=== PATIENT | female | born 1945 | race Caucasian/White ===

== ENCOUNTER → 2018-07-05 | Outpatient (CLI) | payer MEDICARE, BC ==
--- NOTE | 2018-07-05 12:29 | BD ---
EXAMINATION TYPE: Axial Bone Density DATE OF EXAM: 07/05/2018 COMPARISON: 02/12/2010 CLINICAL HISTORY: 72-year-old female screening for osteoporosis Height: 60 IN Weight: 137 LBS FRAX RISK QUESTIONS: Secondary Osteoporosis: 3. Menopause before 45: YES AGE 40 Current Tobacco Use: YES RISK FACTORS HISTORY OF: Active: YES Diet low in dairy products/other sources of calcium: YES Postmenopausal woman: AGE 40 MEDICATIONS: Additional Medications: VIT D, INDERAL,DIURETIC, EXAM MEASUREMENTS: Bone mineral densitometry was performed using the Chef System. Bone mineral density as measured about the Lumbar spine is: ----- L1-L4(G/cm2): 1.155 T Score Values are as follows: ----- L2: -0.9 ----- L3: 0.8 ----- L4: 0.2 ----- L1-L4: -0.2 Bone mineral density has: Increased 8.7% since study of: 02/12/2010 Bone mineral density about the R hip (g/cm2): 0.950 Bone mineral density about the L hip (g/cm2): 0.854 T Score values are as follows: -----R Neck: -0.6 -----L Neck: -1.3 -----R Total: -0.8 -----L Total: -1.0 Bone mineral density has: Increased 2.2% since study of: 02/12/2010 IMPRESSION: Osteopenia (T Score between -2.5 and -1). There is slightly increased risk of fracture and the patient may be considered for treatment. Re-Screen 2-5 years. NOTE: T-SCORE=SD OF THE YOUNG ADULT MEAN.
--- NOTE | 2018-07-06 12:31 | MM ---
Reason for exam: screening (asymptomatic). Last mammogram was performed 2 years ago. History: Patient is postmenopausal. Family history of breast cancer in maternal aunt at age 50 and breast cancer in maternal cousin. Saline implants in both breasts, 1980. Physical Findings: A clinical breast exam by your physician is recommended on an annual basis and results should be correlated with mammographic findings. MG 3D Screen Mammo Imp/Cad Bilateral CC, MLO, and ID view(s) were taken. Prior study comparison: July 19, 2016, bilateral MG 3d screen mammo imp/cad. February 24, 2010, bilateral diagnostic digital mammog. There are scattered fibroglandular densities. No significant changes when compared with prior studies. ASSESSMENT: Benign, BI-RAD 2 RECOMMENDATION: Routine screening mammogram of both breasts in 1 year.
== END | disposition home or self-care (01) ==
LOC: RADMAMWWP 08:50
PROVIDERS: ATTEND Family Medicine
DX: Z12.31 Encounter for screening mammogram for malignant neoplasm of breast (principal); Z13.820 Encounter for screening for osteoporosis; M85.80 Other specified disorders of bone density and structure, unspecified site
CPT/HCPCS: 77063; 77067; 77080

== ENCOUNTER → 2018-11-04 | Outpatient (CLI) | payer MEDICARE, BC ==
--- NOTE | 2018-11-04 13:03 | MR ---
EXAMINATION TYPE: MR hip RT wo con DATE OF EXAM: 11/04/2018 COMPARISON: None. HISTORY: Pain in right hip for 3 months per patient. Standard multiplanar, multisequence MRI departmental protocol Multiplanar, multisequence images of the pelvis focusing on the right hip were acquired. FINDINGS: There is serpiginous low T1 signal in the right femoral head with heterogeneous T2 signal i nvolving the head and neck region. There is asymmetric moderate size right hip joint effusion. Femora l head shape is fairly well preserved . No free ossific fracture fragment is identified. Left hip shows no suspicious serpiginous low T1 signal. There is small to moderate left hip joint eff usion smaller versus opposite right hip. Remainder of pelvis shows no suspicious edema. Sacroiliac cheryl ints are maintained. Pubic symphysis is intact. No suspicious focal fluid signal seen at level of greater or lesser trochanters bilaterally. No groin adenopathy or hernia is seen. Muscle bulk in thighs is symmetric and felt within normal limits. Labrum appears grossly intact given limitation of nonarthrogram study. No suspicious bowel dilatation is seen. Bladder is within normal limits. Incidental facet arthropathy in the lower lumbar spine. 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
== END ==
LOC: RADMRIMAIN 10:07
PROVIDERS: ATTEND Family Medicine
DX: M25.551 Pain in right hip (principal); M87.9 Osteonecrosis, unspecified

== ENCOUNTER → 2018-12-15 | Outpatient (CLI) | payer MEDICARE, BC ==
--- NOTE | 2018-12-15 16:59 | XR ---
EXAMINATION TYPE: XR chest 2V DATE OF EXAM: 12/15/2018 COMPARISON: NONE HISTORY: Preop TECHNIQUE: Frontal and lateral views of the chest are obtained. FINDINGS: There is no heart failure nor confluent pneumonic infiltrate. There are bilateral breast i mplants with calcification. There is no pleural effusion. Heart size is normal. Bony thorax is intact . There are clips from cholecystectomy. IMPRESSION: No active cardiopulmonary disease.
== END | disposition home or self-care (01) ==
LOC: RADXRMAIN 15:02
PROVIDERS: ATTEND Family Medicine
DX: I10 Essential (primary) hypertension (principal)
CPT/HCPCS: 71046

== ENCOUNTER → 2018-12-19 | Outpatient (CLI) | payer MEDICARE, BC | LOC: LABPAT 14:09 | PROVIDERS: ATTEND Orthopaedic Surgery | DX: Z01.812 Encounter for preprocedural laboratory examination (principal); M16.11 Unilateral primary osteoarthritis, right hip | CPT/HCPCS: 86850; 86900; 86901; 87070 ==

== ENCOUNTER 2018-12-26 07:07 | Inpatient (IN) | payer MEDICARE, BC ==
--- NOTE | 2018-12-25 09:08 | HP ---
HISTORY AND PHYSICAL CHIEF COMPLAINT: Right hip pain. HISTORY OF PRESENT ILLNESS: The patient is a 72-year-old retired female who presents with progressive right hip pain over the past several months. It has worsened recently. She notes popping in addition to significant groin pain with weightbearing activities. She has tried medications with only partial temporary relief. She notes she is limping quite a bit. PAST MEDICAL HISTORY: Significant for hypertension. PAST SURGICAL HISTORY: Significant for bilateral rotator cuff repair and bilateral foot surgery. CURRENT MEDICATIONS: 1. Dyazide. 2. Inderal. 3. Maxzide. ALLERGIES: She has allergies to PENICILLIN. FAMILY HISTORY: Significant for heart disease and cancer. SOCIAL HISTORY: Significant for 1 pack per day tobacco use and social alcohol use. REVIEW OF SYSTEMS: Sixteen-point review of systems otherwise reviewed and is noncontributory. PHYSICAL EXAMINATION: On examination, the patient is approximately 5 feet 2 inches, 130 pounds of ectomorphic habitus. HEENT exam is nonfocal. Neck is supple. Passive motion right hip, flexion 70 degrees, external rotation with hip flexed 50 degrees, internal rotation 0 degrees with pain. She has no clinical leg length discrepancy. Her distal neurovascular exam appears to be intact in the right lower extremity. She does have an antalgic gait pattern. AP of the pelvis obtained in the office shows a lytic area of the right femoral head. MRI report right hip 11/04/2018 shows avascular necrosis involving the right femoral head. IMPRESSION: Right hip avascular necrosis. RECOMMENDATIONS: I talked to the patient at length regarding her condition and treatment options. At this point, she is quite symptomatic despite conservative measures. After thorough discussion, she opts to proceed with surgery. We will plan to proceed with direct anterior approach right total hip arthroplasty. Risks and benefits were discussed at length in layman's terms. We will institute DVT prophylaxis postoperatively. MMODL / IJN: [id number] /
[~2018-12-26 07:07] MED LIST: ACETAMINOPHEN TAB 500 MG TAB PO ONE; CLINDAMYCIN 900 MG in DEXTROSE 5% IN WATER 50 ML IVPB ONE; DEXAMETHASONE SOD PHOSPHATE 10 MG/ML 1 ML VIAL IV ONE; HYDROmorphone 0.5 MG/0.5 ML SYRINGE IVP PRN; MELOXICAM 7.5 MG TAB PO ONE; MIDAZOLAM (PF) 2 MG/2 ML VIAL IV PRN; ONDANSETRON 4 MG/2 ML VIAL IVP ONE; TRANEXAMIC ACID 1,000 MG in SODIUM CHLORIDE 0.9% 100 ML IVPB ONE
[2018-12-26] MEDS: LACTATED RINGERS 1,000 ML IV SCH (07:37)
[2018-12-26] MEDS ORDERED: fentaNYL (PF) 50 MCG/ML 2 ML AMP ONE (08:00)
[2018-12-26] MEDS ORDERED: MIDAZOLAM 2 MG/2 ML VIAL ONE (08:00)
[2018-12-26] MEDS ORDERED: SODIUM CHLORIDE 0.9% 100 ML BAG ONE (08:00)
[2018-12-26] MEDS ORDERED: diphenhydrAMINE 50 MG/ML 1 ML VIAL ONE (08:00)
[2018-12-26] MEDS ORDERED: HEPARIN SODIUM,PORCINE 10,000 UNIT/ML 1 ML VIAL ONE (08:00)
[2018-12-26] MEDS ORDERED: PROPOFOL 10 MG/ML 20 ML VIAL IV ONE (08:00)
[2018-12-26] MEDS ORDERED: SODIUM CHLORIDE 0.9% IRRIG 1,000 ML BTL IRRIGATION ONE (08:00)
[2018-12-26] MEDS ORDERED: PHENYLEPHRINE-0.9% NACL SYG 1 MG/10 ML SYRINGE ONE (08:00)
[2018-12-26] MEDS ORDERED: TRANEXAMIC ACID 1,000 MG/10 ML VIAL ONE (08:00)
[2018-12-26] MEDS ORDERED: CLINDAMYCIN 1,800 MG in SODIUM CHLORIDE 0.9% IRRIGATIO 3,000 ML IRRIGATION ONE (08:30)
[2018-12-26] MEDS ORDERED: LACTATED RINGERS 1,000 ML IV ONE (09:38)
[2018-12-26] MEDS ORDERED: traMADol 50 MG TAB PO PRN (11:01)
[2018-12-26] MEDS ORDERED: HYDROcodone/APAP 5-325MG 1 EACH TAB PO PRN (11:01)
[2018-12-26] MEDS ORDERED: ACETAMINOPHEN TAB 325 MG TAB PO PRN (11:01)
[2018-12-26] MEDS ORDERED: NALOXONE 0.4 MG/ML 1 ML VIAL IV PRN (11:01)
[2018-12-26] MEDS ORDERED: HYDROmorphone 0.5 MG/0.5 ML SYRINGE IVP PRN (11:01)
[2018-12-26] MEDS ORDERED: ONDANSETRON 4 MG/2 ML VIAL IVP PRN (11:01)
[2018-12-26] MEDS ORDERED: MAGNESIUM HYDROXIDE 2,400 MG/10 ML CUP PO PRN (11:01)
--- NOTE | 2018-12-26 11:06 | FL ---
EXAMINATION TYPE: FL guidance operating room DATE OF EXAM: 12/26/2018 HISTORY: Flouroscopy time 47 seconds of fluoroscopy provided. IMPRESSION: 1. Fluoroscopy time.
--- NOTE | 2018-12-26 11:07 | XR ---
EXAMINATION TYPE: XR Hip Limited RT DATE OF EXAM: 12/26/2018 COMPARISON: NONE HISTORY: Postop TECHNIQUE: One view submitted. FINDINGS: There is postsurgical change in near anatomic alignment. There is soft tissue edema and emphysema. IMPRESSION: 1. Postoperative change. Appears in near-anatomic alignment.
--- NOTE | 2018-12-26 11:21 | P.OP ---
Date of Procedure: 12/26/18 Preoperative Diagnosis: Avascular necrosis right femoral head Postoperative Diagnosis: Same Procedure(s) Performed: Right total hip arthroplastyanterior approach/cable fixation iatrogenic proximal femur fracture Implants: Depuy Corail size 10 collared standard press-fit femoral stem, 32 mm +1 cobalt chrome femoral head, 50 mm [place] acetabular shell with neutral polyethylene liner. 4 stainless still cables were utilized. Anesthesia: spinal Surgeon: Adan Hutchison Pathology: other (Femoral head) Condition: stable Disposition: PACU Indications for Procedure: The patient's a 73-year-old female who presents with progressive right hip pain secondary to avascular necrosis. A discussion of the risks and benefits of operative intervention was made with patient. Shaft procedure surgery. Specific risks of surgery to include infection, neurovascular injury, development of blood clots, possible fracture, possible ligamentous gaps he, possible instability, and possible need for subsequent procedures was discussed. Informed consent was obtained. Operative Findings: As below Description of Procedure: The patient was brought to the operating room, and after induction of spinal anesthesia was placed supine on the Ava table. Positioning was checked with fluoroscopy. The right hip was then prepped and draped in a normal fashion. A 12 cm incision was then made starting 2 fingerbreadths distal and 3 finger breaths posterior to the ASIS in line with the proximal femur. The skin was incised sharply. Subcutaneous tissues were divided sharply. Electrocautery was used for hemostasis. The fascia was split in line with skin incision. The interval between the sartorius and tensor fascia [place] was then bluntly developed. The posterior fascia was opened with electrocautery. The lateral circumflex vessels were identified and cauterized prior to sectioning. A retractor was placed along the superior femoral neck as well as the anterior acetabular rim. A wide capsulotomy was performed. The neck cut was then made at a 45 angle to the shaft approximately 1 1/2 cm above the level of the lesser trochanter. The head was extracted. Attention was then paid towards preparing the acetabular. Anterior and posterior retractors were placed. The remaining capsular labral tissue sharply debrided clearly defining the acetabular margins. I began reaming with a 41 mm reamer taking care to initially medialize then reaming at 45 of abduction and 20 of anteversion. Sequential reaming is performed up to 49 mm. A trial D mm acetabular shell was inserted in the same orientation and was fully seated. There was good rim fit and stability. Positioning was checked with fluoroscopy. The final 50 mm acetabular shell was inserted again at 45 of abduction and 20 of anteversion. This was fully seated. There was good rim fit and stability. A 6.5 mm x 30 mm cancellus screws placed posterior superior. Good purchase was obtained. Again fluoroscopy was used to check the adequacy of placement. A neutral polyethylene liner was gently impacted. Care was taken to avoid any soft tissue interposition. Pulsatile lavage was utilized. Attention was then paid towards preparing the proximal femur. The central region was cleared of soft tissue. A canal finder was used to find the femoral canal. Sequential broaching was performed up to size 10 taking care to lateralize proximally. A calcar mill was used to fashion the medial calcar. The calcar mill did cause a fracture of the posterior medial calcar. This was stabilized with 4 stainless steel cerclage wires after placement of the size 10 final collared stem parallel to the posterior cortex. There was good rotational stability. A 32 mm +1 cobalt chrome femoral head was gently impacted. The hip was gently reduced. Fluoroscopy was used to check the adequacy of positioning along with leg lengths. I felt both were good. The proximal femoral fracture appeared well reduced and stabilized. The greater tuberosity fragment was minimally displaced and appeared to have good soft tissue attachments. Stability was checked with 80 of external rotation and 60 of extension of the right hip. The wound was irrigated with sterile lavage. The fascia was closed with running 0 Vicryl suture. There was minimal drainage therefore a deep drain was not placed. The second dose of IV TXA was given. The subcutaneous tissues were reapproximated interrupted 2-0 Vicryl sutures. The skin was reapproximated with 3-0 subcuticular strata fix suture. Skin tape and adhesive was applied. A sterile dressing was applied. The patient was then awoken from sedation and transferred to recovery room in good condition. Blood loss was estimated at 500 mL. She did receive Cell Saver. No complications were incurred. Sponge and needle counts were correct at the end of the case.
--- NOTE | 2018-12-26 11:36 | XR ---
EXAMINATION TYPE: XR Hip Limited RT DATE OF EXAM: 12/26/2018 COMPARISON: NONE HISTORY: Postop TECHNIQUE: One view submitted. FINDINGS: There is postsurgical change in near anatomic alignment. There is soft tissue edema and emphysema. S oft tissue emphysema noted. There is soft tissue calcifications. IMPRESSION: 1. Postoperative change. Appears in near-anatomic alignment.
[2018-12-26 12:13] VITALS: BMI 26.0
--- NOTE | 2018-12-26 13:15 | P.CONS ---
History of Present Illness - Reason for Consult Consult date: 12/26/18 Medical management Requesting physician: Adan Hutchison - Chief Complaint Status post right total hip arthroplasty - History of Present Illness This is a 73-year-old female, patient of Dr. Orellana. She has a known past medical history of hypertension, nicotine dependence and avascular necrosis of the right hip. Patient isn't on status post right total hip arthroplasty for the repeat right femoral head avascular necrosis. She tolerated surgery well. She's sitting up in bed. Pain is controlled. Denies any chest pain or shortness of breath. Denies any nausea or vomiting, bowel movement changes or urinary symptoms. We've been consulted for medical management. Review of Systems Please refer to HPI otherwise unremarkable Past Medical History Past Medical History: Deep Vein Thrombosis (DVT), Hypertension History of Any Multi-Drug Resistant Organisms: None Reported Past Surgical History: Cholecystectomy, Orthopedic Surgery, Tonsillectomy, Tubal Ligation Additional Past Surgical History / Comment(s): BILATERAL ROTATOR CUFF SURGERY. ACHILLES TENDON REPAIR. RIGHT CATARACT REMOVED Past Anesthesia/Blood Transfusion Reactions: No Reported Reaction Past Psychological History: No Psychological Hx Reported Additional Psychological History / Comment(s): anxiety when driving Smoking Status: Current every day smoker Past Alcohol Use History: Occasional Additional Past Alcohol Use History / Comment(s): smoker since age 12 1ppd Past Drug Use History: None Reported - Past Family History Mother Family Medical History: Cancer Medications and Allergies Home Medications Medication Instructions Recorded Confirmed Type Triamterene-Hctz 75-50Mg [Maxzide 1 tab PO DAILY 05/22/14 12/26/18 History 75-50 mg tab] Cholecalciferol [Vitamin D3] 1,000 unit PO DAILY@1200 10/18/14 12/26/18 History HYDROcodone/APAP 5-325MG [[place] 1 tab PO Q6HR PRN 12/20/18 12/26/18 History 5-325] Propranolol HCl [Inderal LA] 240 mg PO DAILY 12/20/18 12/26/18 History Allergies Allergy/AdvReac Type Severity Reaction Status Date / Time Penicillins Allergy Anaphylaxis Verified 12/26/18 11:15 tylenol #4 AdvReac Severe Abdominal Uncoded 12/26/18 07:22 Pain Physical Exam Vitals: Vital Signs Temp Pulse Resp BP Pulse Ox 12/26/18 12:03 97.5 F L 77 17 126/84 99 12/26/18 11:47 59 L 16 116/58 97 12/26/18 11:36 58 L 16 107/53 97 12/26/18 11:15 60 16 112/56 93 L 12/26/18 11:07 98.4 F 67 18 163/69 97 12/26/18 07:31 97.0 F L 74 17 174/88 97 Intake and Output 12/25/18 12/26/18 12/26/18 22:59 06:59 14:59 Intake Total 1457 Output Total 500 Balance 957 Intake: IV 1457 Output: Estimated Blood Loss 500 Other: Weight 64.637 kg Head normocephalic Neck supple Lungs clear to auscultation bilaterally no wheezing or crackles Heart regular rate and rhythm S1-S2, no rub or gallop Abdomen is soft nontender nondistended positive bowel sounds no hepatosplenomegaly Extremities no edema. Right hip dressing clean dry and intact Neuro alert and orientated to 3 Assessment and Plan Assessment: 1. Avascular necrosis of the right femoral head status post right total hip a rthroplasty anterior approach and cable fixation of iatrogenic proximal femur fracture. Continue the Xarelto for pain control. Pain medications per orthopedic protocol 2. Essential hypertension: Blood pressures are stable. Resume patient's blood pressure medications which include Maxzide and Inderal 3. Nicotine dependence, discussed smoking cessation for greater than 3 minutes. Add nicotine patch GI prophylaxis Pepcid and DVT prophylaxis Xarelto We'll check CBC and CMP in a.m. Thank you for this consultation. We will continue to follow along during patient's hospitalization. Time with Patient: Greater than 30 (Greater than 50% of the total time spent in counseling and coordination of care.I performed an examination of the patient and discussed their management with the physician Cut Off Tender Glass. I have reviewed the Physician Cut Off Tender Glass's notes and agree with the documented findings and plan of care)
[2018-12-26] MEDS: HYDROcodone/APAP 5-325MG 1 EACH TAB PO PRN ×2 (15:41→22:30)
[2018-12-26] MEDS: NICOTINE 21MG/24HR PATCH TRANSDERM SCH (16:32)
[2018-12-26] MEDS: CLINDAMYCIN 900 MG in DEXTROSE 5% IN WATER 50 ML IVPB SCH ×4 (16:32→23:28)
[2018-12-26] MEDS: HYDROmorphone 0.5 MG/0.5 ML SYRINGE IVP PRN (19:54)
[2018-12-26] MEDS: SENNOSIDES-DOCUSATE SODIUM 1 EACH TAB PO SCH (19:57)
[2018-12-27] MEDS: HYDROmorphone 0.5 MG/0.5 ML SYRINGE IVP PRN ×4 (00:05→20:09)
[2018-12-27 02:03] VITALS: RESP 16
[2018-12-27] MEDS: LACTATED RINGERS 1,000 ML IV SCH (03:37)
[2018-12-27] MEDS: HYDROcodone/APAP 5-325MG 1 EACH TAB PO PRN ×3 (05:07→17:59)
[2018-12-27 07:31] LABS: Basophils % (A) 0 %; Eosinophils # (A) 0.1 k/uL (0-0.7); Eosinophils % (A) 1 %; HCT 32.1 % (34.0-46.0); Lymphocytes % (A) 11 %; MCH 31.8 pg (25.0-35.0); MCHC 31.9 g/dL (31.0-37.0); MCV 99.8 fL (80.0-100.0); Macrocytosis Slight; Mean Platelet Volume 7.5; Monocytes % (A) 11 %; Neutrophils # (A) 6.6 k/uL (1.3-7.7); Neutrophils % (A) 76 %; Platelet Count 196 k/uL (150-450); RBC 3.21 m/uL (3.80-5.40); RDW 14.8 % (11.5-15.5); WBC 8.8 k/uL (3.8-10.6)
[2018-12-27 07:40] LABS: HGB 10.2 gm/dL (11.4-16.0)
[2018-12-27] MEDS: FAMOTIDINE 20 MG TAB PO SCH (08:08)
[2018-12-27] MEDS: RIVAROXABAN 10 MG TAB PO SCH (08:08)
[2018-12-27] MEDS: NICOTINE 21MG/24HR PATCH TRANSDERM SCH (08:08)
[2018-12-27] MEDS: PROPRANOLOL LA 80 MG CAP.SA.24H PO SCH (08:08)
[2018-12-27] MEDS ORDERED: TRIAMTERENE-HCTZ 75-50MG 1 EACH TAB PO SCH (09:00)
[2018-12-27 09:07] LABS: Albumin 3.3 g/dL (3.5-5.0); Calcium 8.9 mg/dL (8.4-10.2); Potassium 4.4 mmol/L (3.5-5.1); Total Bilirubin 0.4 mg/dL (0.2-1.3); Total Protein 5.9 g/dL (6.3-8.2)
[2018-12-27] MEDS: CHOLECALCIFEROL 1,000 UNIT TAB PO SCH (11:27)
--- NOTE | 2018-12-27 13:19 | P.PN ---
Subjective Progress Note Date: 12/27/18 This is a 73-year-old female, patient of Dr. Orellana. She has a known past medical history of hypertension, nicotine dependence and avascular necrosis of the right hip. Patient isn't on status post right total hip arthroplasty for the repeat right femoral head avascular necrosis. She tolerated surgery well. She's sitting up in bed. Pain is controlled. Denies any chest pain or shortness of breath. Denies any nausea or vomiting, bowel movement changes or urinary symptoms. We've been consulted for medical management. On 12/27/2018 patient is alert and oriented 3 resting comfortably in bed. Kings harris is still having some increased pain to right hip. Patient's creatinine also elevated a.m. at 1.22 and bun 42. patient's home Maxzide will be held and labs will be rechecked in a.m. at this time patient denies chest pain or shortness of breath. Patient denies nausea vomiting or diarrhea. Patient denies urinary burning or frequency. Objective - Vital Signs Vital signs: Vital Signs Temp 98.7 F 12/27/18 07:00 Pulse 61 12/27/18 08:10 Resp 16 12/27/18 08:10 BP 118/71 12/27/18 07:00 Pulse Ox 96 12/27/18 07:00 Intake & Output 12/26/18 12/27/18 12/27/18 18:59 06:59 18:59 Intake Total 2147 813 Output Total 500 Balance 1647 813 Weight 64.637 kg Intake: IV 1457 Intake, IV Titration 150 Amount Lactated Ringers 1,000 ml 150 @ 50 mls/hr IV .Q20H TATI Rx#:[id number] Oral 540 813 Output: Estimated Blood Loss 500 Other: Voiding Method Toilet Toilet # Voids 1 - Exam Head normocephalic Neck supple Lungs clear to auscultation bilaterally no wheezing or crackles Heart regular rate and rhythm S1-S2, no rub or gallop Abdomen is soft nontender nondistended positive bowel sounds no hepatosplenomegaly Extremities no edema. Right hip dressing clean dry and intact Neuro alert and orientated to 3 - Labs CBC & Chem 7: 12/27/18 07:05 12/27/18 07:05 Labs: Abnormal Lab Results - Last 24 Hours (Table) 12/27/18 12/27/18 Range/Units 07:05 07:05 RBC 3.21 L (3.80-5.40) m/uL Hgb 10.2 L D (11.4-16.0) gm/dL Hct 32.1 L (34.0-46.0) % Sodium 134 L (137-145) mmol/L BUN 42 H (7-17) mg/dL Creatinine 1.22 H (0.52-1.04) mg/dL Glucose 161 H (74-99) mg/dL AST 46 H (14-36) U/L Total Protein 5.9 L (6.3-8.2) g/dL Albumin 3.3 L (3.5-5.0) g/dL Assessment and Plan Assessment: 1. Avascular necrosis of the right femoral head status post right total hip arthroplasty anterior approach and cable fixation of iatrogenic proximal femur fracture. Continue the Xarelto for pain control. Pain medications per orthopedic protocol 2. Essential hypertension: Blood pressures are stable. Resume patient's blood pressure medications which include Maxzide and Inderal 3. Nicotine dependence, discussed smoking cessation for greater than 3 minutes. Add nicotine patch 4. Acute kidney injury. Creatinine elevated at 1.22 and bun 42. Patient's home medication of Maxzide held. Will recheck in a.m. 5. Acute expected blood loss anemia. hemoglobin 10.2. Will order iron studies. Will start patient on ferrous sulfate GI prophylaxis Pepcid and DVT prophylaxis Xarelto I performed an examination of the patient and discussed their management with the Nurse Practitioner. I have reviewed the Nurse Practitioner's notes and agree with the documented findings and plan of care
[2018-12-27] MEDS: FERROUS SULFATE 325 MG TAB PO SCH (20:08)
[2018-12-27] MEDS: SENNOSIDES-DOCUSATE SODIUM 1 EACH TAB PO SCH (20:08)
[2018-12-28] MEDS: LACTATED RINGERS 1,000 ML IV SCH (06:20)
[2018-12-28] MEDS: HYDROcodone/APAP 5-325MG 1 EACH TAB PO PRN ×2 (08:01→14:39)
[2018-12-28] MEDS: FAMOTIDINE 20 MG TAB PO SCH (08:02)
[2018-12-28] MEDS: FERROUS SULFATE 325 MG TAB PO SCH (08:02)
[2018-12-28] MEDS: RIVAROXABAN 10 MG TAB PO SCH (08:02)
[2018-12-28] MEDS: PROPRANOLOL LA 80 MG CAP.SA.24H PO SCH (08:03)
[2018-12-28] MEDS: NICOTINE 21MG/24HR PATCH TRANSDERM SCH (08:03)
[2018-12-28 08:06] VITALS: TEMP 98.9
[2018-12-28 08:35] LABS: Albumin 3.8 g/dL (3.5-5.0); Calcium 9.7 mg/dL (8.4-10.2); Potassium 4.4 mmol/L (3.5-5.1); Total Bilirubin 0.7 mg/dL (0.2-1.3); Total Protein 6.8 g/dL (6.3-8.2)
[2018-12-28 10:32] LABS: Basophils # (A) 0.1 k/uL (0-0.2); Basophils % (A) 1 %; Eosinophils # (A) 0.1 k/uL (0-0.7); Eosinophils % (A) 1 %; HCT 34.4 % (34.0-46.0); HGB 10.8 gm/dL (11.4-16.0); Lymphocytes # (A) 2.3 k/uL (1.0-4.8); Lymphocytes % (A) 22 %; MCH 31.2 pg (25.0-35.0); MCHC 31.3 g/dL (31.0-37.0); MCV 99.6 fL (80.0-100.0); Macrocytosis Slight; Mean Platelet Volume 8.1; Monocytes % (A) 9 %; Neutrophils # (A) 6.8 k/uL (1.3-7.7); Neutrophils % (A) 65 %; Platelet Count 228 k/uL (150-450); RBC 3.45 m/uL (3.80-5.40); RDW 15.2 % (11.5-15.5); WBC 10.5 k/uL (3.8-10.6)
[2018-12-28 10:47] VITALS: PULSE 55
--- NOTE | 2018-12-28 10:53 | P.PN ---
Subjective Progress Note Date: 12/28/18 Principal diagnosis: Status post direct anterior right total hip arthroplasty, cabling of iatrogenic proximal right femur fracture Patient is evaluated today bedside, she is resting comfortably. Dr. Hutchison was available today to examine and discuss findings with patient. Patient has progressed well with therapy today. Patient is insistent that she does not go to rehab, currently refusing that and would like to return home. Denies any chest pain, shortness of breath, fever or chills. Objective - Vital Signs Vital signs: Vital Signs Temp 98.9 F 12/28/18 07:00 Pulse 55 L 12/28/18 08:00 Resp 16 12/28/18 08:00 BP 173/90 12/28/18 07:00 Pulse Ox 95 12/28/18 07:00 Intake & Output 12/27/18 12/28/18 12/28/18 18:59 06:59 18:59 Intake Total 1050 240 Balance 1050 240 Intake: Oral 1050 240 Other: Voiding Method Toilet Toilet # Voids 4 2 - Exam Right lower extremity: Incision is clean, dry, and intact. The exofin fusion tape is in good condition. There is minimal soft tissue swelling and ecchymosis surrounding the medial and lateral aspects of the incision. Calf is soft, no tenderness with palpation. Plantar flexion, dorsiflexion, EHL, FHL are intact. Sensory exam to light touch throughout the extremity is intact, dorsal pedis pulses 2+. - Labs CBC & Chem 7: 12/28/18 07:39 12/28/18 07:39 Labs: Abnormal Lab Results - Last 24 Hours (Table) 12/28/18 12/28/18 Range/Units 07:39 07:39 RBC 3.45 L (3.80-5.40) m/uL Hgb 10.8 L (11.4-16.0) gm/dL Chloride 108 H (98-107) mmol/L BUN 29 H (7-17) mg/dL AST 64 H (14-36) U/L Assessment and Plan Plan: Assessment: Postoperative day #2 status post direct anterior right total hip arthroplasty/cabling of iatrogenic right proximal femur fracture Plan: Pain control, plan for discharge on oral medication GI and DVT prophylaxis, Eliquis 2.5mg bid for 1 month Wound care instructions discussed Medical recommendations Dr. Hutchison and I had a long discussion with patient today regarding rehab discharge versus home discharge. Patient is adamant returning home and refusing discharged to rehab at this time. I discussed the weightbearing restrictions, wound care instructions, use of anticoagulation and pain medication, and general postoperative activity restrictions at bedside today. Patient is in good unde rstanding of all of the topics we discussed the plans to return home today. Discharge planning: Patient will be discharged home today Time with Patient: Less than 30
--- NOTE | 2018-12-28 10:58 | P.DS ---
Providers Date of admission: 12/26/18 07:07 Expected date of discharge: 12/28/18 Attending physician: Adan Hutchison Primary care physician: Snehal Orellana Hospital Course: Date of admission: 12/26/2018 Date of discharge: 12/28/2018 Admission diagnosis: Status post direct anterior right total hip arthroplasty Discharge diagnosis: Same Attending physician: Dr. Hutchison Surgical procedures: Direct anterior right total hip arthroplasty/cabling of iatrogenic right proximal femur fracture Brief history: Patient is a 73-year-old female with a history of with progressive primary right hip osteoarthritis. At this point patient has failed conservative treatment measures and has opted to proceed with a elective direct anterior right total hip arthroplasty.. Hospital course: Details of patient's surgery can be found in operative report. Patient tolerated the procedure well and was subsequently transported to orthopedic floor. Patient's orthopeidc and medical care was provided daily. Patient had daily laboratory tests performed for evaluation of overall blood counts. Patient had daily physical therapy to include strengthening range of motion as well as education with walker ambulation. Patient was treated with Xarelto for their postoperative DVT prophylaxis during their inpatient stay. Patient was noted to have a relatively uneventful postoperative course. Patient reported satisfactory pain control with oral pain medications by postoperative day 0. Patient showed satisfactory progress with physical therapy. Patient moved steadily through the program and had no difficulty meeting the goals by postoperative day 2. Patient's family was adamant on the patient going to rehab, the patient was not interested in this and did refuse. Dr. Hutchison and myself had discussions with the patient regarding the limitations of weightbearing, use of anticoagulation and pain medication along with activity restrictions if the patient was to return home. Patient is in good understanding and would like to return home. Given patient's otherwise satisfactory course and having met physical therapy goals, plan is to discharge patient home on postoperative day 2. Discharge condition/disposition: Patient will be discharged home in stable condition. Discharge medications: Instructions are given on resumption of patient's normal daily medications per primary care recommendation, in addition patient will be prescribed Pinson 5 mg/325 mg, Colace 100 milligrams, Eliquis 2.5mg. Discharge instructions: 1. Wound care and infection precautions, keep incision dry and covered while showering, no lotions, creams, moisturizers. No soaking, tubs, pools, hottubs. Do not scrub over the incision. 2. Toe-touch weightbearing with walker / cane until follow-up. 3. Ice and elevate when necessary. Do not exceed 20 minutes per hour with ice pack. 4. Utilize compression sleeve until seen at first follow up appointment. 5. Visiting nursing care. 6. Home physical therapy. 7. Pain meds and anticoagulants per prescription. 8. Pain medication has potential to cause constipation. Increase oral fluid and fiber intake. Contact primary care provider if you have not had a bowel movement within 48 hours after discharge 9. No anti-inflammatory medication until discussed at first post operative visit, this including Motrin, Aleve, Mobic, Diclofenac 10. Follow up in office at 2 weeks postop with Talon Rasheed PA-C 11. Follow up with your primary care doctor 7-10 days after discharge. 12. Contact [facility] with any questions, . Procedures: Direct anterior right total hip arthroplasty Patient Condition at Discharge: Good Plan - Discharge Summary Discharge Rx Participant: Yes New Discharge Prescriptions: New Docusate [Colace] 100 mg PO DAILY #30 capsule Apixaban [Eliquis] 2.5 mg PO BID #60 tab Hydrocodone/Acetaminophen [Pinson 5-325] 1 - 2 each PO Q6HR PRN #42 tab PRN Reason: Pain Discontinued HYDROcodone/APAP 5-325MG [Pinson 5-325] 1 tab PO Q6HR PRN PRN Reason: Pain No Action Triamterene-Hctz 75-50Mg [Maxzide 75-50 mg tab] 1 tab PO DAILY Cholecalciferol [Vitamin D3] 1,000 unit PO DAILY@1200 Propranolol HCl [Inderal LA] 240 mg PO DAILY Discharge Medication List Triamterene-Hctz 75-50Mg [Maxzide 75-50 mg tab] 1 tab PO DAILY 05/22/14 [History] Cholecalciferol [Vitamin D3] 1,000 unit PO DAILY@1200 10/18/14 [History] Propranolol HCl [Inderal LA] 240 mg PO DAILY 12/20/18 [History] Apixaban [Eliquis] 2.5 mg PO BID #60 tab 12/28/18 [Rx] Docusate [Colace] 100 mg PO DAILY #30 capsule 12/28/18 [Rx] Hydrocodone/Acetaminophen [Pinson 5-325] 1 - 2 each PO Q6HR PRN #42 tab 12/28/18 [Rx] Follow up Appointment(s)/Referral(s): Snehal Orellana MD [Primary Care Provider] - 01/08/19 10:30 am (With Leonard) [facility],Equipment [NON-STAFF] - [facility], [NON-STAFF] - Adan Hutchison MD [STAFF PHYSICIAN] - 1 Week Activity/Diet/Wound Care/Special Instructions: Orthopedic Discharge Instructions: 1. Wound care and infection precautions, keep incision dry and covered while showering, no lotions, creams, moisturizers. No soaking, pools, hot tubs. Do not scrub over incision. 2. Weight-bear as tolerated with walker / cane until follow-up. 3. Ice and elevate when necessary. Do not exceed 20 minutes per hour with ice pack. 4. Utilize compression sleeve until seen at first follow up appointment. 5. Pain meds and anticoagulants per prescription. 6. Pain medication has potential to cause constipation. Increase oral fluid and fiber intake. Contact primary care provider if you have not had a bowel movement within 48 hours after discharge. 7. No anti-inflammatory medication until discussed at first post operative visit, this including Motrin, Aleve, Mobic, Diclofenac. 8. Follow up in office at 2 weeks postop with Talon Rasheed PA-C 9. Follow up with your primary care doctor 7-10 days after discharge. 10. Contact [facility] with any questions, [phone]. 11. Walker will be delivered to bedside prior to discharge by [facility]. Discharge Disposition: HOME WITH HOME HEALTH SERVICES
[2018-12-28 12:11] VITALS: BP 143/85
[2018-12-28] MEDS: CHOLECALCIFEROL 1,000 UNIT TAB PO SCH (12:20)
--- NOTE | 2018-12-28 12:59 | P.PN ---
Subjective Progress Note Date: 12/28/18 This is a 73-year-old female, patient of Dr. Orellana. She has a known past medical history of hypertension, nicotine dependence and avascular necrosis of the right hip. Patient isn't on status post right total hip arthroplasty for the repeat right femoral head avascular necrosis. She tolerated surgery well. She's sitting up in bed. Pain is controlled. Denies any chest pain or shortness of breath. Denies any nausea or vomiting, bowel movement changes or urinary symptoms. We've been consulted for medical management. On 12/27/2018 patient is alert and oriented 3 resting comfortably in bed. Kings harris is still having some increased pain to right hip. Patient's creatinine also elevated a.m. at 1.22 and bun 42. patient's home Maxzide will be held and labs will be rechecked in a.m. at this time patient denies chest pain or shortness of breath. Patient denies nausea vomiting or diarrhea. Patient denies urinary burning or frequency. 12/28/2018 patient is medically stable for discharge. Orthopedics have cleared her for discharge. We will resume her Maxzide. Kidney functions have improved. Patient denies any chest pain or shortness of breath any nausea or vomiting she's having bowel movements denies any difficulty urinating. Objective - Vital Signs Vital signs: Vital Signs Temp 98.9 F 12/28/18 07:00 Pulse 55 L 12/28/18 08:00 Resp 16 12/28/18 08:00 BP 143/85 12/28/18 12:10 Pulse Ox 95 12/28/18 07:00 Intake & Output 12/27/18 12/28/18 12/28/18 18:59 06:59 18:59 Intake Total 1050 240 Balance 1050 240 Intake: Oral 1050 240 Other: Voiding Method Toilet Toilet # Voids 4 2 - Exam Head normocephalic Neck supple Lungs clear to auscultation bilaterally no wheezing or crackles Heart regular rate and rhythm S1-S2, no rub or gallop Abdomen is soft nontender nondistended positive bowel sounds no hepatosp lenomegaly Extremities no edema Neuro alert and orientated to 3 - Labs CBC & Chem 7: 12/28/18 07:39 12/28/18 07:39 Labs: Abnormal Lab Results - Last 24 Hours (Table) 12/28/18 12/28/18 Range/Units 07:39 07:39 RBC 3.45 L (3.80-5.40) m/uL Hgb 10.8 L (11.4-16.0) gm/dL Chloride 108 H (98-107) mmol/L BUN 29 H (7-17) mg/dL AST 64 H (14-36) U/L Assessment and Plan Assessment: 1. Avascular necrosis of the right femoral head status post right total hip arthroplasty anterior approach and cable fixation of iatrogenic proximal femur fracture. Patient started Eliquis for DVT prophylaxis per orthopedics. Continue the Odem for pain control 2. Essential hypertension: Blood pressures are stable. Continue medications 3. Nicotine dependence, discussed smoking cessation for greater than 3 minutes. 4. Acute kidney injury. Resolved with IV fluids. Will resume patient's Maxzide 5. Acute expected blood loss anemia. hemoglobin 10.2. Continue iron supplement 6. Mildly elevated AST of 64. Monitor closely while taking the Odem. We'll have repeat LFTs in 1 week Patient is medical stable for discharge repeat CBC and CMP in 1 week follow-up on LFTs anemia and acute kidney injury I performed an examination of the patient and discussed their management with the physician Endocrinology Physician. I have reviewed the Physician Endocrinology Physician's notes and agree with the documented findings and plan of care
[2018-12-28 16:14] LABS: Iron Saturation 7.01 (12.00-45.00)
== END 2018-12-28 15:15 | disposition home health service (06) | DRG 470 ==
LOC: 2ORMAIN 07:07 → 4SSUR 11:06
PROVIDERS: ADMIT Orthopaedic Surgery; ATTEND Orthopaedic Surgery
PROC: 30233N0 Transfusion of Autologous Red Blood Cells into Peripheral Vein, Percutaneous Approach (ICD-10-PCS; 2018-12-26)
PROC: 0SR902A Replacement of Right Hip Joint with Metal on Polyethylene Synthetic Substitute, Uncemented, Open Approach (ICD-10-PCS; principal; 2018-12-26 08:00)
DX: M87.9 Osteonecrosis, unspecified (principal); D62 Acute posthemorrhagic anemia; N17.9 Acute kidney failure, unspecified; M96.661 Fracture of femur following insertion of orthopedic implant, joint prosthesis, or bone plate, right leg; F17.210 Nicotine dependence, cigarettes, uncomplicated; I10 Essential (primary) hypertension; E55.9 Vitamin D deficiency, unspecified; F41.9 Anxiety disorder, unspecified; R74.0 Nonspecific elevation of levels of transaminase and lactic acid dehydrogenase [LDH]; Z86.718 Personal history of other venous thrombosis and embolism; Z79.899 Other long term (current) drug therapy; Z88.6 Allergy status to analgesic agent; Z88.0 Allergy status to penicillin; Z90.49 Acquired absence of other specified parts of digestive tract; Z98.51 Tubal ligation status; Z98.41 Cataract extraction status, right eye; Z96.1 Presence of intraocular lens; Z80.9 Family history of malignant neoplasm, unspecified; Z82.49 Family history of ischemic heart disease and other diseases of the circulatory system; Y65.8 Other specified misadventures during surgical and medical care; Y79.3 Surgical instruments, materials and orthopedic devices (including sutures) associated with adverse incidents
CPT/HCPCS: 73501; 80053; 83540; 83550; 85025; 85610; 86850; 86891; 86900; 86901; 88300

== ENCOUNTER → 2021-05-04 | Outpatient (CLI) | payer MEDICARE, BC | END | disposition home or self-care (01) | LOC: LABWHC1 11:12 | PROVIDERS: ATTEND Orthopaedic Surgery | DX: Z96.641 Presence of right artificial hip joint (principal) | CPT/HCPCS: 36415; 85652; 86140 ==

== ENCOUNTER → 2022-08-11 | Outpatient (CLI) | payer MEDICARE, BC ==
--- NOTE | 2022-08-11 14:37 | US ---
EXAMINATION TYPE: US venous doppler duplex UE LT DATE OF EXAM: 08/11/2022 COMPARISON: Prior left upper extremity venous ultrasound October 06, 2021 CLINICAL HISTORY: LEFT ARM PAIN M79.602. SIDE PERFORMED: lt Left Arm: Negative for DVT Grayscale, color doppler, spectral doppler imaging performed of the deep veins of the left upper extr emity. There is normal flow, compressibility and vascular waveforms. IMPRESSION: No acute deep or superficial venous thrombosis in the left upper extremity. No significan t change from prior.
== END | disposition home or self-care (01) ==
LOC: RADUSWWP 13:42
PROVIDERS: ATTEND Internal Medicine Infectious Disease
DX: M79.602 Pain in left arm (principal)

== ENCOUNTER 2023-03-21 07:11 | Emergency (ER) | payer MEDICARE ==
[2023-03-21] MEDS ORDERED: IPRATROPIUM-ALBUTEROL 3 ML NEB INHALATION STA (07:33)
[2023-03-21] MEDS ORDERED: KETOROLAC 15 MG/ML 1 ML VIAL IVP STA (07:34)
--- NOTE | 2023-03-21 07:42 | ED ---
General Adult HPI - General Chief complaint: Upper Respiratory Infection Stated complaint: COUGH,BACK PAIN Time Seen by Provider: 03/21/23 07:26 Source: patient, RN notes reviewed, old records reviewed Mode of arrival: ambulatory Limitations: no limitations - History of Present Illness Initial comments: 77-year-old female presenting for evaluation of cough and upper back pain. Patient's symptoms have progressed over the past 10 days. She had initially developed flulike symptoms. She had vomiting and diarrhea as well as cough. Her symptoms mostly resolved with the exception of cough and the development of upper back pain over the past 2 days. She was seen at outside hospital yesterday and prescribed azithromycin and steroids. She has not started this medication yet. No abdominal pain. No central chest pain. No fever. - Related Data Home Medications Medication Instructions Recorded Confirmed Triamterene-Hctz 75-50Mg [Maxzide 1 tab PO DAILY 05/22/14 10/06/21 75-50] Acetaminophen Tab [Tylenol] 1,000 mg PO Q6H PRN 10/06/21 10/06/21 Aspirin EC [Ecotrin Low Dose] 81 mg PO DAILY 10/06/21 10/06/21 Calcium Carbonate [Calcium] 600 mg PO DAILY 10/06/21 10/06/21 Celecoxib [CeleBREX] 100 mg PO Q12H 10/06/21 10/06/21 Cephalexin [Keflex] 1,000 mg PO BID 10/06/21 10/06/21 Famotidine 20 mg PO DAILY 10/06/21 10/06/21 Gabapentin [Neurontin] 100 mg PO Q12H 10/06/21 10/06/21 Ondansetron [Zofran] 4 mg PO Q8H PRN 10/06/21 10/06/21 Propranolol HCl [Propranolol HCl 160 mg PO DAILY 10/06/21 10/06/21 ER] Tamsulosin [Flomax] 0.4 mg PO DAILY 10/06/21 10/06/21 rifAMPin [Rifampin] 600 mg PO DAILY 10/06/21 10/06/21 Previous Rx's Medication Instructions Recorded Albuterol Inhaler [Ventolin Hfa 1 - 2 puff INHALATION Q4HR PRN #1 03/21/23 Inhaler] each methylPREDNISolone Dose Pack 4 mg PO DIRECTED #21 packet 03/21/23 [Medrol Dose Pack] Allergies Allergy/AdvReac Type Severity Reaction Status Date / Time Penicillins Allergy Anaphylaxis Verified 03/21/23 07:19 tylenol #4 AdvReac Severe Abdominal Uncoded 03/21/23 07:19 Pain Review of Systems ROS Statement: Those systems with pertinent positive or pertinent negative responses have been documented in the HPI. ROS Other: All systems not noted in ROS Statement are negative. Past Medical History Past Medical History: Deep Vein Thrombosis (DVT), Hypertension History of Any Multi-Drug Resistant Organisms: None Reported Past Surgical History: Cholecystectomy, Orthopedic Surgery, Tonsillectomy, Tubal Ligation Additional Past Surgical History / Comment(s): BILATERAL ROTATOR CUFF SURGERY. ACHILLES TENDON REPAIR. RIGHT CATARACT REMOVED. 2 total right hip replacement, infection in right hip that needed debridment Past Anesthesia/Blood Transfusion Reactions: No Reported Reaction Past Psychological History: No Psychological Hx Reported Smoking Status: Current every day smoker Past Alcohol Use History: Occasional Past Drug Use History: None Reported - Past Family History Mother Family Medical History: Cancer General Exam Limitations: no limitations General appearance: alert, in no apparent distress Head exam: Present: atraumatic, normocephalic Eye exam: Present: normal appearance, PERRL ENT exam: Present: normal exam Neck exam: Present: normal inspection Respiratory exam: Present: wheezes (Bronchospastic cough). Absent: respiratory distress Cardiovascular Exam: Present: regular rate, normal rhythm GI/Abdominal exam: Present: soft. Absent: distended, tenderness, guarding Extremities exam: Absent: pedal edema Neurological exam: Present: alert, oriented X3 Psychiatric exam: Present: normal affect, normal mood Skin exam: Present: warm, dry, intact Course Vital Signs 03/21/23 03/21/23 07:16 09:01 Temperature 98.4 F Pulse Rate 68 68 Respiratory 22 Rate Blood Pressure 132/84 O2 Sat by Pulse 95 Oximetry Medical Decision Making - Medical Decision Making Was pt. sent in by a medical professional or institution (, PA, CONTAINER [employer] WELDER, urgent care, hospital, or correction...) When possible be specific @ -No Did you speak to anyone other than the patient for history (EMS, parent, family, police, friend...)? What history was obtained from this source @ -No Did you review nursing and triage notes (agree or disagree)? Why? @ -I reviewed and agree with nursing and triage notes Were old charts reviewed (outside hosp., previous admission, EMS record, old EKG, old radiological studies, urgent care reports/EKG's, correction records)? Report findings @ -No old charts were reviewed Differential Diagnosis (chest pain, altered mental status, abdominal pain women, abdominal pain men, vaginal bleeding, weakness, fever, dyspnea, syncope, headache, dizziness, GI bleed, back pain, seizure, CVA, palpatations, mental health, musculoskeletal)? @ Differential Dyspnea: Coronary syndrome, arrhythmia, tamponade, asthma, COPD, pulmonary embolism, pneumonia, pneumothorax, pulmonary effusion, anaphylaxis, diabetic ketoacidosis, flailed chest, pulmonary contusion, diaphragmatic rupture, anemia, neuromuscular, this is not meant to be an all-inclusive list. EKG interpreted by me (3pts min.). @ -EKG: Sinus rhythm rate of 67, TN interval 185, QRS duration 81, QTC [address] segment elevation, baseline artifact limiting assessment.] X-rays interpreted by me (1pt min.). @ -[No focal pneumonia, no pneumothorax CT interpreted by me (1pt min.). @ -None done U/S interpreted by me (1pt. min.). @ -None done What testing was considered but not performed or refused? (CT, X-rays, U/S, labs)? Why? @ -None What meds were considered but not given or refused? Why? @ -None Did you discuss the management of the patient with other professionals (professionals i.e. , PA, CON[employer]ER [employer] W[employer]DER, lab, RT, psych nurse, secondary social studies teacher, electrical wirer, teacher, medical officer, keycase assembler)? Give summary @ -No Was smoking cessation discussed for >3mins.? @ -No Was critical care preformed (if so, how long)? @ -No Were there social determinants of health that impacted care today? How? (Homelessness, low income, unemployed, alcoholism, drug addiction, transportation, low edu. Level, literacy, decrease access to med. care, group home, rehab)? @ -No Was there de-escalation of care discussed even if they declined (Discuss DNR or withdrawal of care, Hospice)? DNR status @ -No What co-morbidities impacted this encounter? (DM, HTN, Smoking, COPD, CAD, Cancer, CVA, ARF, Chemo, Hep., AIDS, mental health diagnosis, sleep apnea, morbid obesity)? @ -[Hypertension Was patient admitted / discharged? Hospital course, mention meds given and route, prescriptions, significant lab abnormalities, going to OR and other pertinent info. @ -[77-year-old female with flulike symptoms for the past 10 days. Chest x-ray is clear. She has normal laboratory tests including CBC, CMP, troponin testing and BNP. Her viral panel does indicate she is influenza A positive. He's had symptoms for 10 days and is not a candidate for oral antivirals. Her vital signs are stable. She's feeling better in the emergency department. She'll be prescribed a Medrol Dosepak and albuterol inhaler for bronchospasm associated with influenza. Acute bronchitis. Return parameters discussed at length. Undiagnosed new problem with uncertain prognosis? @ -No Drug Therapy requiring intensive monitoring for toxicity (Heparin, Nitro, Insulin, Cardizem)? @ -No Were any procedures done? @ -No Diagnosis/symptom? @ -[Influenza A, acute bronchitis Acute, or Chronic, or Acute on Chronic? @ -[Acute Uncomplicated (without systemic symptoms) or Complicated (systemic symptoms)? @ -default Side effects of treatment? @ -No Exacerbation, Progression, or Severe Exacerbation? @ -No Poses a threat to life or bodily function? How? (Chest pain, USA, LA, pneumonia, PE, COPD, DKA, ARF, appy, cholecystitis, CVA, Diverticulitis, Homicidal, Suicidal, threat to staff... and all critical care pts) @ -[Low-risk - Lab Data Result diagrams: 03/21/23 07:44 03/21/23 07:44 Lab Results 03/21/23 03/21/23 03/21/23 Range/Units 07:44 07:44 07:44 WBC 11.5 H (3.8-10.6) k/uL RBC 4.72 (3.80-5.40) m/uL Hgb 15.1 (11.4-16.0) gm/dL Hct 45.6 (34.0-46.0) % MCV 96.7 (80.0-100.0) fL MCH 32.1 (25.0-35.0) pg MCHC 33.1 (31.0-37.0) g/dL RDW 13.4 (11.5-15.5) % Plt Count 248 (150-450) k/uL MPV 8.0 Neutrophils % 81 % Lymphocytes % 11 % Monocytes % 7 % Eosinophils % 1 % Basophils % 0 % Neutrophils # 9.3 H (1.3-7.7) k/uL Lymphocytes # 1.2 (1.0-4.8) k/uL Monocytes # 0.8 (0-1.0) k/uL Eosinophils # 0.1 (0-0.7) k/uL Basophils # 0.1 (0-0.2) k/uL PT 10.4 (9.0-12.0) sec INR 1.0 (<1.2) APTT 22.4 (22.0-30.0) sec Sodium 138 (137-145) mmol/L Potassium 4.3 (3.5-5.1) mmol/L Chloride 101 (98-107) mmol/L Carbon Dioxide 26 (22-30) mmol/L Anion Gap 11 mmol/L BUN 22 H (7-17) mg/dL Creatinine 0.90 (0.52-1.04) mg/dL Est GFR (CKD-EPI)AfAm 71 (>60 ml/min/1.73 sqM) Est GFR (CKD-EPI)NonAf 62 (>60 ml/min/1.73 sqM) Glucose 147 H (74-99) mg/dL Plasma Lactic Acid Victor M (0.7-2.0) mmol/L Calcium 8.8 (8.4-10.2) mg/dL Magnesium 1.2 L (1.6-2.3) mg/dL Total Bilirubin 1.2 (0.2-1.3) mg/dL AST 36 (14-36) U/L ALT 46 H (4-34) U/L Alkaline Phosphatase 77 (38-126) U/L Troponin I (0.000-0.034) ng/mL NT-Pro-B Natriuret Pep pg/mL Total Protein 8.0 (6.3-8.2) g/dL Albumin 4.5 (3.5-5.0) g/dL Influenza Type A (PCR) (Not Detectd) Influenza Type B (PCR) (Not Detectd) RSV (PCR) (Not Detectd) SARS-CoV-2 (PCR) (Not Detectd) 03/21/23 03/21/23 03/21/23 Range/Units 07:44 07:44 07:44 WBC (3.8-10.6) k/uL RBC (3.80-5.40) m/uL Hgb (11.4-16.0) gm/dL Hct (34.0-46.0) % MCV (80.0-100.0) fL MCH (25.0-35.0) pg MCHC (31.0-37.0) g/dL RDW (11.5-15.5) % Plt Count (150-450) k/uL MPV Neutrophils % % Lymphocytes % % Monocytes % % Eosinophils % % Basophils % % Neutrophils # (1.3-7.7) k/uL Lymphocytes # (1.0-4.8) k/uL Monocytes # (0-1.0) k/uL Eosinophils # (0-0.7) k/uL Basophils # (0-0.2) k/uL PT (9.0-12.0) sec INR (<1.2) APTT (22.0-30.0) sec Sodium (137-145) mmol/L Potassium (3.5-5.1) mmol/L Chloride (98-107) mmol/L Carbon Dioxide (22-30) mmol/L Anion Gap mmol/L BUN (7-17) mg/dL Creatinine (0.52-1.04) mg/dL Est GFR (CKD-EPI)AfAm (>60 ml/min/1.73 sqM) Est GFR (CKD-EPI)NonAf (>60 ml/min/1.73 sqM) Glucose (74-99) mg/dL Plasma Lactic Acid Victor M 1.1 (0.7-2.0) mmol/L Calcium (8.4-10.2) mg/dL Magnesium (1.6-2.3) mg/dL Total Bilirubin (0.2-1.3) mg/dL AST (14-36) U/L ALT (4-34) U/L Alkaline Phosphatase (38-126) U/L Troponin I <0.012 (0.000-0.034) ng/mL NT-Pro-B Natriuret Pep 330 pg/mL Total Protein (6.3-8.2) g/dL Albumin (3.5-5.0) g/dL Influenza Type A (PCR) (Not Detectd) Influenza Type B (PCR) (Not Detectd) RSV (PCR) (Not Detectd) SARS-CoV-2 (PCR) (Not Detectd) 03/21/23 Range/Units 07:55 WBC (3.8-10.6) k/uL RBC (3.80-5.40) m/uL Hgb (11.4-16.0) gm/dL Hct (34.0-46.0) % MCV (80.0-100.0) fL MCH (25.0-35.0) pg MCHC (31.0-37.0) g/dL RDW (11.5-15.5) % Plt Count (150-450) k/uL MPV Neutrophils % % Lymphocytes % % Monocytes % % Eosinophils % % Basophils % % Neutrophils # (1.3-7.7) k/uL Lymphocytes # (1.0-4.8) k/uL Monocytes # (0-1.0) k/uL Eosinophils # (0-0.7) k/uL Basophils # (0-0.2) k/uL PT (9.0-12.0) sec INR (<1.2) APTT (22.0-30.0) sec Sodium (137-145) mmol/L Potassium (3.5-5.1) mmol/L Chloride (98-107) mmol/L Carbon Dioxide (22-30) mmol/L Anion Gap mmol/L BUN (7-17) mg/dL Creatinine (0.52-1.04) mg/dL Est GFR (CKD-EPI)AfAm (>60 ml/min/1.73 sqM) Est GFR (CKD-EPI)NonAf (>60 ml/min/1.73 sqM) Glucose (74-99) mg/dL Plasma Lactic Acid Victor M (0.7-2.0) mmol/L Calcium (8.4-10.2) mg/dL Magnesium (1.6-2.3) mg/dL Total Bilirubin (0.2-1.3) mg/dL AST (14-36) U/L ALT (4-34) U/L Alkaline Phosphatase (38-126) U/L Troponin I (0.000-0.034) ng/mL NT-Pro-B Natriuret Pep pg/mL Total Protein (6.3-8.2) g/dL Albumin (3.5-5.0) g/dL Influenza Type A (PCR) Detected A (Not Detectd) Influenza Type B (PCR) Not Detected (Not Detectd) RSV (PCR) Not Detected (Not Detectd) SARS-CoV-2 (PCR) Not Detected (Not Detectd) Disposition Clinical Impression: Influenza, Acute bronchitis Disposition: HOME SELF-CARE Condition: Fair Instructions (If sedation given, give patient instructions): Influenza (ED), Acute Bronchitis (ED) Prescriptions: methylPREDNISolone Dose Pack [Medrol Dose Pack] 4 mg PO DIRECTED #21 packet Albuterol Inhaler [Ventolin Hfa Inhaler] 1 - 2 puff INHALATION Q4HR PRN #1 each PRN Reason: Shortness Of Breath Is patient prescribed a controlled substance at d/c from ED?: No Referrals: Snehal Orellana MD [Primary Care Provider] - 1-2 days Time of Disposition: 09:09
[2023-03-21 08:14] LABS: Basophils # (A) 0.1 k/uL (0-0.2); Basophils % (A) 0 %; Eosinophils # (A) 0.1 k/uL (0-0.7); Eosinophils % (A) 1 %; HCT 45.6 % (34.0-46.0); HGB 15.1 gm/dL (11.4-16.0); Lymphocytes # (A) 1.2 k/uL (1.0-4.8); Lymphocytes % (A) 11 %; MCH 32.1 pg (25.0-35.0); MCHC 33.1 g/dL (31.0-37.0); MCV 96.7 fL (80.0-100.0); Monocytes # (A) 0.8 k/uL (0-1.0); Monocytes % (A) 7 %; Neutrophils # (A) 9.3 k/uL (1.3-7.7); Neutrophils % (A) 81 %; Platelet Count 248 k/uL (150-450); RBC 4.72 m/uL (3.80-5.40); RDW 13.4 % (11.5-15.5); WBC 11.5 k/uL (3.8-10.6)
[2023-03-21 08:24] LABS: Partial Thromboplastin Time 22.4 sec (22.0-30.0); Prothrombin Time 10.4 sec (9.0-12.0)
[2023-03-21 08:26] LABS: ALT 46 U/L (4-34); African American GFR (CKD) 71 (>60 ml/min/1.73 sqM); Albumin 4.5 g/dL (3.5-5.0); Anion Gap 11 mmol/L; Blood Urea Nitrogen 22 mg/dL (7-17); Calcium 8.8 mg/dL (8.4-10.2); Carbon Dioxide 26 mmol/L (22-30); Chloride 101 mmol/L (98-107); Glucose 147 mg/dL (74-99); Magnesium 1.2 mg/dL (1.6-2.3); Non-African American GFR(CKD) 62 (>60 ml/min/1.73 sqM); Sodium 138 mmol/L (137-145); Total Bilirubin 1.2 mg/dL (0.2-1.3)
[2023-03-21 08:30] LABS: AST 36 U/L (14-36); Alkaline Phosphatase 77 U/L (38-126); Potassium 4.3 mmol/L (3.5-5.1)
--- NOTE | 2023-03-21 08:35 | XR ---
EXAMINATION TYPE: XR chest 2V DATE OF EXAM: 03/21/2023 8:19 AM COMPARISON: Chest radiographs from 12/15/2018 TECHNIQUE: XR chest 2V Frontal and lateral views of the chest. CLINICAL INDICATION:Female, 77 years old with history of difficulty breathing; FINDINGS: Lungs/Pleura: There is no evidence of pleural effusion, focal consolidation, or pneumothorax. Pulmonary vascularity: Unremarkable. Heart/mediastinum: Cardiomediastinal silhouette is unremarkable. Musculoskeletal: No acute osseous pathology. Bilateral breast implants. IMPRESSION: No acute cardiopulmonary disease/process.
[2023-03-21] MEDS ORDERED: SODIUM CHLORIDE 0.9% 500 ML 500 ML IV ONE (08:51)
[2023-03-21] MEDS ORDERED: MAGNESIUM SULFATE-D5W PMX 1 GM in DEXTROSE/WATER 1 100ML.BAG IVPB ONE (08:51)
[2023-03-21 10:12] VITALS: BP 114/63; PULSE 56; RESP 18; TEMP 97.4
== END 2023-03-21 10:12 | disposition home or self-care (01) ==
LOC: EC 07:11
DX: J10.1 Influenza due to other identified influenza virus with other respiratory manifestations (principal); J20.9 Acute bronchitis, unspecified; I10 Essential (primary) hypertension; F17.200 Nicotine dependence, unspecified, uncomplicated; Z79.899 Other long term (current) drug therapy; Z79.82 Long term (current) use of aspirin; Z88.0 Allergy status to penicillin; Z20.822 Contact with and (suspected) exposure to COVID-19; Z88.6 Allergy status to analgesic agent
CPT/HCPCS: 36415; 94640; 93005; 83880; 80053; 83605; 83735; 84484; 85025; 85610; 85730; 87636; 71046; 99284; 96365; 96375; J3475; J1885

== ENCOUNTER 2023-03-22 07:50 | Inpatient (IN) | payer MEDICARE ==
[2023-03-22] MEDS ORDERED: SODIUM CHLORIDE 0.9% 500 ML 500 ML IV STA (08:07)
[2023-03-22] MEDS ORDERED: SODIUM CHLORIDE 0.9% 1,000 ML IV STA (08:07)
[2023-03-22] MEDS ORDERED: IPRATROPIUM 0.5 MG/2.5 ML NEBU INHALATION STA (08:07)
[2023-03-22] MEDS ORDERED: ALBUTEROL NEBULIZED 2.5 MG/3 ML INHALATION STA (08:07)
[2023-03-22] MEDS ORDERED: IPRATROPIUM-ALBUTEROL 3 ML NEB INHALATION PRN (08:09)
[2023-03-22] MEDS ORDERED: NALOXONE 0.4 MG/ML 1 ML VIAL IVP PRN (08:09)
[2023-03-22] MEDS ORDERED: KETOROLAC 15 MG/ML 1 ML VIAL IVP STA (08:10)
--- NOTE | 2023-03-22 08:16 | ED ---
General Adult HPI - General Chief complaint: Shortness of Breath Stated complaint: RAJ Time Seen by Provider: 03/22/23 07:52 Source: patient, RN notes reviewed, old records reviewed Mode of arrival: EMS - History of Present Illness Initial comments: 77-year-old female presents for reevaluation of cough and dyspnea. Patient's symptoms have been present for the past 10 days. She was diagnosed with influenza yesterday and treated with bronchodilator and oral steroids. She states her symptoms have not improved and she is feeling quite weak with increased dyspnea. She also has upper back pain which has been constant throughout the past week or so. No central chest pain. No abdominal pain. - Related Data Home Medications Medication Instructions Recorded Confirmed Triamterene-Hctz 75-50Mg [Maxzide 1 tab PO DAILY 05/22/14 10/06/21 75-50] Acetaminophen Tab [Tylenol] 1,000 mg PO Q6H PRN 10/06/21 10/06/21 Aspirin EC [Ecotrin Low Dose] 81 mg PO DAILY 10/06/21 10/06/21 Calcium Carbonate [Calcium] 600 mg PO DAILY 10/06/21 10/06/21 Celecoxib [CeleBREX] 100 mg PO Q12H 10/06/21 10/06/21 Cephalexin [Keflex] 1,000 mg PO BID 10/06/21 10/06/21 Famotidine 20 mg PO DAILY 10/06/21 10/06/21 Gabapentin [Neurontin] 100 mg PO Q12H 10/06/21 10/06/21 Ondansetron [Zofran] 4 mg PO Q8H PRN 10/06/21 10/06/21 Propranolol HCl [Propranolol HCl 160 mg PO DAILY 10/06/21 10/06/21 ER] Tamsulosin [Flomax] 0.4 mg PO DAILY 10/06/21 10/06/21 rifAMPin [Rifampin] 600 mg PO DAILY 10/06/21 10/06/21 Previous Rx's Medication Instructions Recorded Albuterol Inhaler [Ventolin Hfa 1 - 2 puff INHALATION Q4HR PRN #1 03/21/23 Inhaler] each methylPREDNISolone Dose Pack 4 mg PO DIRECTED #21 packet 03/21/23 [Medrol Dose Pack] Allergies Allergy/AdvReac Type Severity Reaction Status Date / Time Penicillins Allergy Anaphylaxis Verified 03/22/23 07:58 tylenol #4 AdvReac Severe Abdominal Uncoded 03/22/23 07:58 Pain Review of Systems ROS Statement: Those systems with pertinent positive or pertinent negative responses have been documented in the HPI. ROS Other: All systems not noted in ROS Statement are negative. Past Medical History Past Medical History: Deep Vein Thrombosis (DVT), Hypertension History of Any Multi-Drug Resistant Organisms: None Reported Past Surgical History: Cholecystectomy, Orthopedic Surgery, Tonsillectomy, Tubal Ligation Additional Past Surgical History / Comment(s): BILATERAL ROTATOR CUFF SURGERY. ACHILLES TENDON REPAIR. RIGHT CATARACT REMOVED. 2 total right hip replacement, infection in right hip that needed debridment Past Anesthesia/Blood Transfusion Reactions: No Reported Reaction Past Psychological History: No Psychological Hx Reported Smoking Status: Current every day smoker Past Alcohol Use History: Occasional Past Drug Use History: None Reported - Past Family History Mother Family Medical History: Cancer General Exam General appearance: alert, in no apparent distress Head exam: Present: atraumatic, normocephalic Eye exam: Present: normal appearance, PERRL ENT exam: Present: mucous membranes dry Neck exam: Present: normal inspection. Absent: tenderness, meningismus Respiratory exam: Present: wheezes, decreased breath sounds. Absent: respiratory distress Cardiovascular Exam: Present: regular rate, normal rhythm GI/Abdominal exam: Present: soft. Absent: distended, tenderness Extremities exam: Present: normal inspection, normal capillary refill. Absent: pedal edema, calf tenderness Neurological exam: Present: alert, oriented X3, CN II-XII intact. Absent: motor sensory deficit Psychiatric exam: Present: normal affect, normal mood Skin exam: Present: warm, dry, intact Course Vital Signs 03/22/23 03/22/23 07:54 08:01 Temperature 98.6 F Pulse Rate 60 Respiratory 20 22 Rate Blood Pressure 130/90 O2 Sat by Pulse 100 Oximetry Medical Decision Making - Medical Decision Making Was pt. sent in by a medical professional or institution (, PA, [employer] [facility], urgent care, hospital, or senior care...) When possible be specific @ -No Did you speak to anyone other than the patient for history (EMS, parent, family, police, friend...)? What history was obtained from this source @ -No Did you review nursing and triage notes (agree or disagree)? Why? @ -I reviewed and agree with nursing and triage notes Were old charts reviewed (outside hosp., previous admission, EMS record, old EKG, old radiological studies, urgent care reports/EKG's, senior care records)? Report findings @ -No old charts were reviewed Differential Diagnosis (chest pain, altered mental status, abdominal pain women, abdominal pain men, vaginal bleeding, weakness, fever, dyspnea, syncope, headache, dizziness, GI bleed, back pain, seizure, CVA, palpatations, mental health, musculoskeletal)? @ -[Differential Dyspnea: Coronary syndrome, arrhythmia, tamponade, asthma, COPD, pulmonary embolism, pneumonia, pneumothorax, pulmonary effusion, anaphylaxis, diabetic ketoacidosis, flailed chest, pulmonary contusion, diaphragmatic rupture, anemia, neuromuscular, this is not meant to be an all-inclusive list. EKG interpreted by me (3pts min.). @ -EKG: Sinus rhythm rate of 62, MO interval 181, QRS duration 82, QTC [address] segment elevation. X-rays interpreted by me (1pt min.). @ -None done CT interpreted by me (1pt min.). @ -None done U/S interpreted by me (1pt. min.). @ -None done What testing was considered but not performed or refused? (CT, X-rays, U/S, labs)? Why? @ -None What meds were considered but not given or refused? Why? @ -None Did you discuss the management of the patient with other professionals (professionals i.e. , PA, [employer] [facility], lab, RT, psych nurse, social work associate, head of loss prevention, teacher, district fire management officer, manager of case)? Give summary @ -[Dr. Matias Was smoking cessation discussed for >3mins.? @ -No Was critical care preformed (if so, how long)? @ -No Were there social determinants of health that impacted care today? How? (Homelessness, low income, unemployed, alcoholism, drug addiction, transportation, low edu. Level, literacy, decrease access to med. care, [facility], rehab)? @ -No Was there de-escalation of care discussed even if they declined (Discuss DNR or withdrawal of care, Hospice)? DNR status @ -No What co-morbidities impacted this encounter? (DM, HTN, Smoking, COPD, CAD, Cancer, CVA, ARF, Chemo, Hep., AIDS, mental health diagnosis, sleep apnea, morbid obesity)? @ -[COPD, hypertension Was patient admitted / discharged? Hospital course, mention meds given and route, prescriptions, significant lab abnormalities, going to OR and other pertinent info. @ -77-year-old female presenting with increased cough and dyspnea. Patient was diagnosed with influenza yesterday. Her symptoms are worsening. She does have a long tobacco use history and I suspect a component of COPD. she will benefit from admission with IV steroids, IV fluids, and nebulized albuterol and Atrovent. Undiagnosed new problem with uncertain prognosis? @ -No Drug Therapy requiring intensive monitoring for toxicity (Heparin, Nitro, Insulin, Cardizem)? @ -No Were any procedures done? @ -No Diagnosis/symptom? @ -COPD, influenza Acute, or Chronic, or Acute on Chronic? @ -Acute Uncomplicated (without systemic symptoms) or Complicated (systemic symptoms)? @ -default Side effects of treatment? @ -No Exacerbation, Progression, or Severe Exacerbation? @ -No Poses a threat to life or bodily function? How? (Chest pain, [place], CO, pneumonia, PE, COPD, DKA, ARF, appy, cholecystitis, CVA, Diverticulitis, Homicidal, Suicidal, threat to staff... and all critical care pts) @ -[Mass, worsening respiratory failure, hypoxia Disposition Clinical Impression: Influenza, Acute exacerbation of chronic obstructive pulmonary disease Disposition: ADMITTED IP TO THIS HOSP Condition: Stable Is patient prescribed a controlled substance at d/c from ED?: No Referrals: Snehal Orellana MD [Primary Care Provider] - 1-2 days Time of Disposition: 08:11
[2023-03-22 08:53] LABS: Basophils % (A) 0 %; Eosinophils % (A) 0 %; HCT 42.2 % (34.0-46.0); HGB 14.4 gm/dL (11.4-16.0); Lymphocytes # (A) 0.8 k/uL (1.0-4.8); Lymphocytes % (A) 7 %; MCH 32.6 pg (25.0-35.0); MCHC 34.1 g/dL (31.0-37.0); MCV 95.8 fL (80.0-100.0); Monocytes # (A) 0.3 k/uL (0-1.0); Monocytes % (A) 2 %; Neutrophils # (A) 9.8 k/uL (1.3-7.7); Neutrophils % (A) 90 %; Platelet Count 250 k/uL (150-450); RBC 4.41 m/uL (3.80-5.40); RDW 13.4 % (11.5-15.5); WBC 10.9 k/uL (3.8-10.6)
[2023-03-22 09:04] LABS: INR 0.9 (<1.2)
[2023-03-22 09:07] LABS: ALT 35 U/L (4-34); AST 25 U/L (14-36); African American GFR (CKD) 77 (>60 ml/min/1.73 sqM); Alkaline Phosphatase 85 U/L (38-126); Anion Gap 10 mmol/L; Blood Urea Nitrogen 22 mg/dL (7-17); Calcium 8.4 mg/dL (8.4-10.2); Carbon Dioxide 26 mmol/L (22-30); Chloride 100 mmol/L (98-107); Glucose 155 mg/dL (74-99); Magnesium 1.4 mg/dL (1.6-2.3); Non-African American GFR(CKD) 67 (>60 ml/min/1.73 sqM); Potassium 3.6 mmol/L (3.5-5.1); Sodium 136 mmol/L (137-145); Total Bilirubin 0.9 mg/dL (0.2-1.3)
[2023-03-22] MEDS ORDERED: MAGNESIUM SULFATE-D5W PMX 1 GM in DEXTROSE/WATER 1 100ML.BAG IVPB ONE (09:08)
[2023-03-22] MEDS: methylPREDNISolone SOD SUCCI 125 MG/2 ML VIAL IV SCH ×2 (09:14→16:53)
--- NOTE | 2023-03-22 09:19 | XR ---
EXAMINATION TYPE: XR chest 2V DATE OF EXAM: 03/22/2023 9:13 AM COMPARISON: Chest radiographs from 03/21/2023 TECHNIQUE: XR chest 2V Frontal and lateral views of the chest. CLINICAL INDICATION:Female, 77 years old with history of difficulty breathing; FINDINGS: Lungs/Pleura: There is no evidence of pleural effusion, focal consolidation, or pneumothorax. Pulmonary vascularity: Unremarkable. Heart/mediastinum: Cardiomediastinal silhouette is unremarkable. Musculoskeletal: No acute osseous pathology. Bilateral breast implants. No significant change from prior. IMPRESSION: No acute cardiopulmonary disease/process. No significant change from prior.
[2023-03-22] MEDS: IPRATROPIUM-ALBUTEROL 3 ML NEB INHALATION SCH ×3 (11:23→19:27)
[2023-03-22] MEDS: HYDROmorphone 0.5 MG/0.5 ML SYRINGE IVP PRN ×2 (13:14→19:20)
[2023-03-22 17:29] LABS: Glucose,Whole Blood 160 mg/dL (70-110)
[2023-03-22] MEDS: INSULIN ASPART (NovoLOG) 100 UNIT/ML VIAL SQ SCH ×2 (18:03→21:24)
[2023-03-22 20:07] LABS: Glucose,Whole Blood 145 mg/dL (70-110)
[2023-03-23] MEDS: methylPREDNISolone SOD SUCCI 125 MG/2 ML VIAL IV SCH ×3 (05:17→17:36)
[2023-03-23 06:48] LABS: Basophils % (A) 0 %; Eosinophils # (A) 0.1 k/uL (0-0.7); Eosinophils % (A) 1 %; HCT 37.1 % (34.0-46.0); HGB 12.4 gm/dL (11.4-16.0); Lymphocytes # (A) 0.7 k/uL (1.0-4.8); Lymphocytes % (A) 8 %; MCHC 33.5 g/dL (31.0-37.0); MCV 98.4 fL (80.0-100.0); Mean Platelet Volume 8.4; Monocytes # (A) 0.2 k/uL (0-1.0); Monocytes % (A) 2 %; Neutrophils % (A) 90 %; Platelet Count 222 k/uL (150-450); RBC 3.77 m/uL (3.80-5.40); RDW 13.4 % (11.5-15.5); WBC 8.9 k/uL (3.8-10.6)
[2023-03-23 07:14] LABS: Glucose,Whole Blood 168 mg/dL (70-110)
[2023-03-23 07:19] LABS: ALT 26 U/L (4-34); AST 20 U/L (14-36); African American GFR (CKD) 70 (>60 ml/min/1.73 sqM); Albumin 3.2 g/dL (3.5-5.0); Albumin/Globulin Ratio 1.2; Alkaline Phosphatase 69 U/L (38-126); Anion Gap 7 mmol/L; Blood Urea Nitrogen 29 mg/dL (7-17); Calcium 7.8 mg/dL (8.4-10.2); Carbon Dioxide 24 mmol/L (22-30); Chloride 104 mmol/L (98-107); Globulin 2.7 g/dL; Glucose 187 mg/dL (74-99); Non-African American GFR(CKD) 61 (>60 ml/min/1.73 sqM); Potassium 3.6 mmol/L (3.5-5.1); Sodium 135 mmol/L (137-145); Total Bilirubin 0.4 mg/dL (0.2-1.3); Total Protein 5.9 g/dL (6.3-8.2)
[2023-03-23] MEDS: IPRATROPIUM-ALBUTEROL 3 ML NEB INHALATION SCH ×4 (07:35→20:28)
[2023-03-23] MEDS: INSULIN ASPART (NovoLOG) 100 UNIT/ML VIAL SQ SCH ×4 (07:49→20:36)
--- NOTE | 2023-03-23 10:29 | P.HPIM ---
History of Present Illness H&P Date: 03/22/23 Camryn Machuca, is a 77-year-old female who presented to [facility] emergency room with a chief complaint of worsening shortness of breath and cough. Patient stated that she had symptoms for more than 10 days she was diagnosed with influenza A, however her symptoms has been worsening and she decided to return to emergency room. She was evaluated in the emergency room vital examination on presentation revealed a temperature of 98.6 pulse 60 respiration 20 blood pressure 130/90 pul se ox 100% on room air Laboratory data revealed a white blood count of 10.9 hemoglobin 14.4 platelet count 250 sodium 136 potassium 3.6 BUN 22 creatinine 0.84 Testing in the emergency room revealed chest x-ray done in the emergency room revealed no acute cardiopulmonary disease, EKG done in the emergency room revealed normal sinus rhythm normal EKG Patient was admitted to medical floor for further evaluation and treatment Past Medical History Past Medical History: Deep Vein Thrombosis (DVT), Hypertension History of Any Multi-Drug Resistant Organisms: None Reported Past Surgical History: Cholecystectomy, Orthopedic Surgery, Tonsillectomy, Tubal Ligation Additional Past Surgical History / Comment(s): BILATERAL ROTATOR CUFF SURGERY. ACHILLES TENDON REPAIR. RIGHT CATARACT REMOVED. 2 total right hip replacement, infection in right hip that needed debridment Past Anesthesia/Blood Transfusion Reactions: No Reported Reaction Past Psychological History: No Psychological Hx Reported Smoking Status: Current every day smoker Past Alcohol Use History: Occasional Past Drug Use History: None Reported - Past Family History Mother Family Medical History: Cancer Medications and Allergies Home Medications Medication Instructions Recorded Confirmed Type Triamterene-Hctz 75-50Mg [Maxzide 1 tab PO DAILY 05/22/14 03/22/23 History 75-50] Propranolol HCl [Propranolol HCl 320 mg PO HS 10/06/21 03/22/23 History ER] Albuterol Inhaler [Ventolin Hfa 1 - 2 puff INHALATION RT-Q4H PRN 03/22/23 03/22/23 History Inhaler] methylPREDNISolone Dose Pack See Taper PO DIRECTED 03/22/23 03/22/23 History [Medrol Dose Pack] Allergies Allergy/AdvReac Type Severity Reaction Status Date / Time Penicillins Allergy Anaphylaxis Verified 03/22/23 10:27 tylenol #4 AdvReac Severe Abdominal Uncoded 03/22/23 07:58 Pain Physical Exam Vitals: Vital Signs Temp Pulse Pulse Resp BP BP Pulse Ox 03/22/23 14:00 97.6 F 51 L 17 112/67 93 L 03/22/23 11:30 78 18 03/22/23 11:23 71 18 03/22/23 09:19 58 L 18 03/22/23 09:09 60 20 98 03/22/23 09:08 57 L 22 153/71 97 03/22/23 08:01 22 03/22/23 07:54 98.6 F 60 20 130/90 100 Intake and Output 03/21/23 03/22/23 03/22/23 22:59 06:59 14:59 Other: Voiding Method Toilet Weight 58.967 kg In general patient is alert and oriented x 3 in no distress HEENT head normocephalic and atraumatic Neck is supple no JVD no goiter no lymphadenopathy no carotid bruit Chest examination is clear to auscultation no crackles no wheezing Cardiac exam reveals regular heart sounds S1 and S2 no gallops no murmurs Abdomen is soft nontender no organomegaly with normal bowel sounds Extremity exam reveals no edema no cyanosis or clubbing Neurological examination reveals no gross focal deficits Results CBC & Chem 7: 03/23/23 06:10 03/23/23 06:10 Labs: Abnormal Lab Results - Last 24 Hours (Table) 03/22/23 03/22/23 Range/Units 08:46 08:46 WBC 10.9 H (3.8-10.6) k/uL Neutrophils # 9.8 H (1.3-7.7) k/uL Lymphocytes # 0.8 L (1.0-4.8) k/uL Sodium 136 L (137-145) mmol/L BUN 22 H (7-17) mg/dL Glucose 155 H (74-99) mg/dL Magnesium 1.4 L (1.6-2.3) mg/dL ALT 35 H (4-34) U/L Assessment and Plan Plan: Worsening shortness of breath, likely related to acute exacerbation of chronic obstructive pulmonary disease Acute influenza A Underlying history of hypertension Previous history of deep venous thrombosis Underlying history of osteoarthritis At this time patient was seen and examined on the medical floor Home medications reviewed and reordered Patient was started on IV Solu-Medrol and inhaled bronchodilators For DVT prophylaxis subcu Lovenox Will follow closely during this admission
[2023-03-23 12:02] LABS: Glucose,Whole Blood 152 mg/dL (70-110)
[2023-03-23] MEDS: ENOXAPARIN 40 MG/0.4 ML SYRINGE SQ SCH (12:54)
[2023-03-23] MEDS: HYDROcodone/APAP 7.5-325MG 1 EACH TAB PO PRN ×2 (12:54→17:37)
[2023-03-23] MEDS: TRIAMTERENE-HCTZ 75-50MG 1 EACH TAB PO SCH (12:54)
--- NOTE | 2023-03-23 13:50 | P.PN ---
Subjective Progress Note Date: 03/23/23 Camryn Machuca, is a 77-year-old female who presented to [facility] emergency room with a chief complaint of worsening shortness of breath and cough. Patient stated that she had symptoms for more than 10 days she was diagnosed with influenza A, however her symptoms has been worsening and she decided to return to emergency room. She was evaluated in the emergency room vital examination on presentation revealed a temperature of 98.6 pulse 60 respiration 20 blood pressure 130/90 pulse ox 100% on room air Laboratory data revealed a white blood count of 10.9 hemoglobin 14.4 platelet count 250 sodium 136 potassium 3.6 BUN 22 creatinine 0.84 Testing in the emergency room revealed chest x-ray done in the emergency room revealed no acute cardiopulmonary disease, EKG done in the emergency room revealed normal sinus rhythm normal EKG Patient was admitted to medical floor for further evaluation and treatment On 03/23/2023 patient reports improvement with shortness of breath. She remains on Solu-Medrol. Awaiting pulmonary input. Patient denies chest pain or shortness of breath. Patient denies nausea vomiting diarrhea. Patient denies any urinary burning or frequency Objective - Vital Signs Vital signs: Vital Signs Temp 98.6 F 03/23/23 13:25 Pulse 51 L 03/23/23 13:25 Resp 18 03/23/23 13:25 BP 139/69 03/23/23 13:25 Pulse Ox 91 L 03/23/23 13:25 FiO2 Intake & Output 03/22/23 03/23/23 03/23/23 18:59 06:59 18:59 Intake Total 240 Balance 240 Weight 58.967 kg Intake: Oral 240 Other: Voiding Method Toilet Toilet Bedside Commode # Voids 1 2 1 - Exam In general patient is alert and oriented x 3 in no distress HEENT head normocephalic and atraumatic Neck is supple no JVD no goiter no lymphadenopathy no carotid bruit Chest examination is clear to auscultation no crackles no wheezing Cardiac exam reveals regular heart sounds S1 and S2 no gallops no murmurs Abdomen is soft nontender no organomegaly with normal bowel sounds Extremity exam reveals no edema no cyanosis or clubbing Neurological examination reveals no gross focal deficits - Labs CBC & Chem 7: 03/23/23 06:10 03/23/23 06:10 Labs: Abnormal Lab Results - Last 24 Hours (Table) 03/22/23 03/22/23 03/23/23 Range/Units 17:28 20:06 06:10 RBC 3.77 L (3.80-5.40) m/uL Neutrophils # 8.0 H (1.3-7.7) k/uL Lymphocytes # 0.7 L (1.0-4.8) k/uL Sodium (137-145) mmol/L BUN (7-17) mg/dL Glucose (74-99) mg/dL POC Glucose (mg/dL) 160 H 145 H (70-110) mg/dL Calcium (8.4-10.2) mg/dL Total Protein (6.3-8.2) g/dL Albumin (3.5-5.0) g/dL 03/23/23 03/23/23 03/23/23 Range/Units 06:10 07:12 12:01 RBC (3.80-5.40) m/uL Neutrophils # (1.3-7.7) k/uL Lymphocytes # (1.0-4.8) k/uL Sodium 135 L (137-145) mmol/L BUN 29 H (7-17) mg/dL Glucose 187 H (74-99) mg/dL POC Glucose (mg/dL) 168 H 152 H (70-110) mg/dL Calcium 7.8 L (8.4-10.2) mg/dL Total Protein 5.9 L (6.3-8.2) g/dL Albumin 3.2 L (3.5-5.0) g/dL Assessment and Plan Plan: Worsening shortness of breath, likely related to acute exacerbation of chronic obstructive pulmonary disease Acute influenza A Underlying history of hypertension Previous history of deep venous thrombosis Underlying history of osteoarthritis At this time patient was seen and examined on the medical floor Home medications reviewed and reordered Patient was started on IV Solu-Medrol and inhaled bronchodilators For DVT prophylaxis subcu Nilsx Will follow closely during this admission
--- NOTE | 2023-03-23 16:58 | P.CNPUL ---
History of Present Illness Consult date: 03/23/23 History of present illness: 77-year-old female patient with history of COPD, coming into the hospital because of worsening shortness of breath and cough and congestion. Symptoms are going on for several days and the patient was diagnosed having an acute influenza infection on 03/21/2023. This was diagnosed and based on worsening symptoms, the patient came into the emergency department. She is currently on room air oxygen. Hemodynamically stable. Blood work shows a WBC count of 8.9 with a hemoglobin 12.4. BUN is at 29 with a creatinine of 0.5 and a sodium lev el is at 135 and a glucose at 187. LFTs are within normal limits and the patient has no pleurisy or hemoptysis. No chest pain for now. She remains on room air oxygen. She started on bronchodilators and she was also started on IV Solu-Medrol. Review of Systems Constitutional: Reports fatigue, Reports weakness Eyes: denies as per HPI, denies blurred vision, denies bulging eye, denies decreased vision, denies diplopia, denies discharge, denies dry eye, denies irritation, denies itching, denies pain, denies photophobia, denies loss of peripheral vision, denies loss of vision, denies tunnel vision/blind spots Ears: deny: decreased hearing, ear discharge, earache, tinnitus Ears, nose, mouth and throat: Reports as per HPI Breasts: absent: as per HPI, change in shape, gynecomastia, masses, nipple discharge, pain, skin changes, swelling Cardiovascular: Reports dyspnea on exertion Respiratory: Reports cough, Reports dyspnea, Reports wheezing Gastrointestinal: Reports as per HPI Genitourinary: Reports as per HPI Menstruation: Reports as per HPI Musculoskeletal: Reports as per HPI Musculoskeletal: absent: ankle pain, ankle stiffness, ankle swelling Integumentary: Reports as per HPI Neurological: Reports as per HPI Psychiatric: Reports as per HPI Endocrine: Reports as per HPI Hematologic/Lymphatic: Reports as per HPI, Reports easy bleeding Past Medical History Past Medical History: COPD, Deep Vein Thrombosis (DVT), Hypertension History of Any Multi-Drug Resistant Organisms: None Reported Past Surgical History: Cholecystectomy, Orthopedic Surgery, Tonsillectomy, Tubal Ligation Additional Past Surgical History / Comment(s): BILATERAL ROTATOR CUFF SURGERY. ACHILLES TENDON REPAIR. RIGHT CATARACT REMOVED. 2 total right hip replacement, infection in right hip that needed debridment Past Anesthesia/Blood Transfusion Reactions: No Reported Reaction Past Psychological History: No Psychological Hx Reported Smoking Status: Current every day smoker Past Alcohol Use History: Occasional Past Drug Use History: None Reported - Past Family History Mother Family Medical History: Cancer Medications and Allergies Home Medications Medication Instructions Recorded Confirmed Type Triamterene-Hctz 75-50Mg [Maxzide 1 tab PO DAILY 05/22/14 03/22/23 History 75-50] Propranolol HCl [Propranolol HCl 320 mg PO HS 10/06/21 03/22/23 History ER] Albuterol Inhaler [Ventolin Hfa 1 - 2 puff INHALATION RT-Q4H PRN 03/22/23 03/22/23 History Inhaler] methylPREDNISolone Dose Pack See Taper PO DIRECTED 03/22/23 03/22/23 History [Medrol Dose Pack] Allergies Allergy/AdvReac Type Severity Reaction Status Date / Time Penicillins Allergy Anaphylaxis Verified 03/22/23 10:27 tylenol #4 AdvReac Severe Abdominal Uncoded 03/22/23 07:58 Pain Physical Exam Vitals: Vital Signs Temp Pulse Pulse Resp BP Pulse Ox 03/23/23 13:25 98.6 F 51 L 18 139/69 91 L 03/23/23 11:39 60 03/23/23 11:30 57 L 03/23/23 07:53 98.5 F 64 16 139/67 94 L 03/23/23 02:52 98.6 F 48 L 18 130/71 92 L 03/22/23 20:00 18 03/22/23 19:23 98.6 F 56 L 18 118/69 91 L Intake and Output 03/23/23 03/23/23 03/23/23 06:59 14:59 22:59 Intake Total 900 Balance 900 Intake: Intake, IV Titration 900 Amount Sodium Chloride 0.9% 1, 900 000 ml @ 75 mls/hr IV . [id number] STA Rx#:[id number] Other: # Voids 2 1 In general patient is alert and oriented x 3 in no distress Head exam was generally normal. There was no scleral icterus or corneal arcus. Mucous membranes were moist. HEENT head normocephalic and atraumatic Neck is supple no JVD no goiter no lymphadenopathy no carotid bruit Chest examination is clear to auscultation no crackles , scattered extremity wheezes bilaterally Cardiac exam reveals regular heart sounds S1 and S2 no gallops no murmurs Abdomen is soft nontender no organomegaly with normal bowel sounds Extremity exam reveals no edema no cyanosis or clubbing Neurological examination reveals no gross focal deficits Examination of the skin revealed no evidence of significant rashes, suspicious appearing nevi or other concerning lesions. Results - Laboratory Findings CBC and BMP: 03/23/23 06:10 03/23/23 06:10 PT/INR, D-dimer PT 10.0 sec (9.0-12.0) 03/22/23 08:46 INR 0.9 (<1.2) 03/22/23 08:46 Abnormal lab findings: Abnormal Labs 03/22/23 03/22/23 03/22/23 08:46 08:46 17:28 WBC 10.9 H RBC Neutrophils # 9.8 H Lymphocytes # 0.8 L Sodium 136 L BUN 22 H Glucose 155 H POC Glucose (mg/dL) 160 H Calcium Magnesium 1.4 L ALT 35 H Total Protein Albumin 03/22/23 03/23/23 03/23/23 20:06 06:10 06:10 WBC RBC 3.77 L Neutrophils # 8.0 H Lymphocytes # 0.7 L Sodium 135 L BUN 29 H Glucose 187 H POC Glucose (mg/dL) 145 H Calcium 7.8 L Magnesium ALT Total Protein 5.9 L Albumin 3.2 L 03/23/23 03/23/23 07:12 12:01 WBC RBC Neutrophils # Lymphocytes # Sodium BUN Glucose POC Glucose (mg/dL) 168 H 152 H Calcium Magnesium ALT Total Protein Albumin - Diagnostic Findings Chest x-ray: image reviewed Assessment and Plan Plan: Acute exacerbation of COPD secondary to influenza A infection Acute influenza A tracheobronchitis, no evidence of any pneumonia Shortness of breath secondary to above Remote history of DVT and the patient is currently on no anticoagulants Osteoarthritis History of smoking Plan Agree on the current management Continue bronchodilators and steroids The patient is outside the window for Tamiflu treatment Resume all medications We'll continue to follow
[2023-03-23 17:15] LABS: Glucose,Whole Blood 196 mg/dL (70-110)
[2023-03-23 20:24] LABS: Glucose,Whole Blood 180 mg/dL (70-110)
[2023-03-23] MEDS ORDERED: PROPRANOLOL LA 80 MG CAP.SA.24H PO SCH (21:00)
[2023-03-24] MEDS: methylPREDNISolone SOD SUCCI 125 MG/2 ML VIAL IV SCH ×2 (00:05→08:54)
[2023-03-24] MEDS: HYDROcodone/APAP 7.5-325MG 1 EACH TAB PO PRN ×3 (00:05→14:12)
[2023-03-24 07:21] LABS: Glucose,Whole Blood 139 mg/dL (70-110)
[2023-03-24 07:40] VITALS: BP 160/90; PULSE 49; RESP 20; TEMP 98.1
[2023-03-24] MEDS: INSULIN ASPART (NovoLOG) 100 UNIT/ML VIAL SQ SCH ×2 (07:57→12:22)
[2023-03-24] MEDS: ENOXAPARIN 40 MG/0.4 ML SYRINGE SQ SCH (08:54)
[2023-03-24] MEDS: TRIAMTERENE-HCTZ 75-50MG 1 EACH TAB PO SCH (08:55)
[2023-03-24] MEDS: IPRATROPIUM-ALBUTEROL 3 ML NEB INHALATION SCH ×2 (09:20→12:58)
[2023-03-24 11:08] LABS: Basophils # (A) 0.01 X 10*3/uL (0.00-0.10); Basophils % (A) 0.1 %; Eosinophils # (A) 0 X 10*3/uL (0.04-0.35); Eosinophils % (A) 0 %; HCT 34.3 % (37.2-46.3); HGB 11.5 d/dL (12.0-15.0); Lymphocytes # (A) 0.56 X 10*3/uL (0.90-5.00); Lymphocytes % (A) 4.7 %; MCH 32.5 pg (27.0-32.0); MCHC 33.5 d/dL (32.0-37.0); MCV 96.9 FL (80.0-97.0); Mean Platelet Volume 10.3 FL (9.5-12.2); Monocytes # (A) 0.71 X 10*3/uL (0.20-1.00); Monocytes % (A) 5.9 %; NRBC Per 100 WBC 0 X 10*3/uL (0.00-0.01); Neutrophils # (A) 10.56 X 10*3/uL (1.80-7.70); Neutrophils % (A) 88.5 %; Platelet Count 238 X 10*3/uL (140-440); RBC 3.54 X 10*6/uL (4.10-5.20); RDW 13.8 % (11.5-14.5); WBC 11.94 X 10*3/uL (4.50-10.00)
[2023-03-24 11:13] LABS: ALT 31 U/L (8-44); AST 19 U/L (13-35); Albumin 3.6 d/dL (3.8-4.9); Albumin/Globulin Ratio 1.57 Ratio (1.60-3.17); Alkaline Phosphatase 81 U/L (41-126); Blood Urea Nitrogen 39.8 mg/dL (9.0-27.0); Calcium 8.6 mg/dL (8.7-10.3); Carbon Dioxide 21.6 mmol/L (21.6-31.8); Chloride 102 mmol/L (96-109); Globulin 2.3 d/dL (1.6-3.3); Glucose 135 mg/dL (70-110); Potassium 3.8 mmol/L (3.5-5.5); Sodium 140 mmol/L (135-145); Total Bilirubin 0.2 mg/dL (0.3-1.2); Total Protein 5.9 d/dL (6.2-8.2)
[2023-03-24 12:08] LABS: Glucose,Whole Blood 155 mg/dL (70-110)
--- NOTE | 2023-03-24 13:16 | P.DS ---
Providers Date of admission: 03/22/23 08:10 Expected date of discharge: 03/24/23 Attending physician: Malorie Matias Consults: 03/23/23 09:23 Consult Physician Routine Consulting Provider: Vipin Carr Consult Reason/Comments: copd exacerbation, influenza Do you want consulting provider notified?: Yes Primary care physician: Snehal Orellana [facility] Course: Diagnosis on discharge: Worsening shortness of breath, likely related to acute exacerbation of chronic obstructive pulmonary disease Acute influenza A Underlying history of hypertension Previous history of deep venous thrombosis Underlying history of osteoarthritis Hospital course: Camryn Machuca, is a 77-year-old female who presented to [facility] emergency room with a chief complaint of worsening shortness of breath and cough. Patient stated that she had symptoms for more than 10 days she was diagnosed with influenza A, however her symptoms has been worsening and she decided to return to emergency room. She was evaluated in the emergency room vital examination on presentation revealed a temperature of 98.6 pulse 60 respiration 20 blood pressure 130/90 pulse ox 100% on room air Laboratory data revealed a white blood count of 10.9 hemoglobin 14.4 platelet count 250 sodium 136 potassium 3.6 BUN 22 creatinine 0.84 Testing in the emergency room revealed chest x-ray done in the emergency room revealed no acute cardiopulmonary disease, EKG done in the emergency room revealed normal sinus rhythm normal EKG Patient was admitted to medical floor for further evaluation and treatment On 03/23/2023 patient reports improvement with shortness of breath. She remains on Solu-Medrol. Awaiting pulmonary input. Patient denies chest pain or shortness of breath. Patient denies nausea vomiting diarrhea. Patient denies any urinary burning or frequency On 03/24/2023 patient was seen and examined on the medical she is alert and oriented 3 in no apparent distress she reports improvement in her shortness of breath she denies any other complaints at this time. Patient is requesting to be discharged home. At this time she will be discharged to home today, she was given a prescription for a nebulizer, DuoNeb updraft solution 4 times daily as needed, and a prescription for prednisone 40 mg with taper. Patient will follow up with her primary care physician within one week. Patient Condition at Discharge: Stable Plan - Discharge Summary Discharge Rx Participant: No New Discharge Prescriptions: New Ipratropium-Albuterol Nebulize [Duoneb 0.5 mg-3 mg/3 ml Soln] 3 ml INHALATION RT-QID each predniSONE 10 mg PO DIRECTED 12 Days #30 tab Continue Triamterene-Hctz 75-50Mg [Maxzide 75-50] 1 tab PO DAILY Propranolol HCl [Propranolol HCl ER] 320 mg PO HS Albuterol Inhaler [Ventolin Hfa Inhaler] 1 - 2 puff INHALATION RT-Q4H PRN PRN Reason: Shortness Of Breath Discontinued methylPREDNISolone Dose Pack [Medrol Dose Pack] See Taper PO DIRECTED Discharge Medication List Triamterene-Hctz 75-50Mg [Maxzide 75-50] 1 tab PO DAILY 05/22/14 [History] Propranolol HCl [Propranolol HCl ER] 320 mg PO HS 10/06/21 [History] Albuterol Inhaler [Ventolin Hfa Inhaler] 1 - 2 puff INHALATION RT-Q4H PRN 03/22/23 [History] Ipratropium-Albuterol Nebulize [Duoneb 0.5 mg-3 mg/3 ml Soln] 3 ml INHALATION RT-QID each 03/24/23 [Rx] predniSONE 10 mg PO DIRECTED 12 Days #30 tab 03/24/23 [Rx] Follow up Appointment(s)/Referral(s): Snehal Orellana MD [Primary Care Provider] - 1-2 days
--- NOTE | 2023-03-24 16:26 | P.PN ---
Subjective Progress Note Date: 03/24/23 77-year-old female patient with history of COPD, coming into the hospital because of worsening shortness of breath and cough and congestion. Symptoms are going on for several days and the patient was diagnosed having an acute influenza infection on 03/21/2023. This was diagnosed and based on worsening symptoms, the patient came into the emergency department. She is currently on room air oxygen. Hemodynamically stable. Blood work shows a WBC count of 8.9 with a hemoglobin 12.4. BUN is at 29 with a creatinine of 0.5 and a sodium level is at 135 and a glucose at 187. LFTs are within normal limits and the patient has no pleurisy or hemoptysis. No chest pain for now. She remains on room air oxygen. She started on bronchodilators and she was also started on IV Solu-Medrol. On 03/22/2023, the patient no new complaints and the patient is clinically stable. She is having minimal amount of cough and congestion. No fever or chills. No altered mentation. The patient can be discharged home today. Objective - Vital Signs Vital signs: Vital Signs Temp 98.1 F 03/24/23 07:39 Pulse 49 L 03/24/23 08:40 Resp 20 03/24/23 08:40 BP 160/90 03/24/23 07:39 Pulse Ox 97 03/24/23 07:39 FiO2 Intake & Output 03/23/23 03/24/23 03/24/23 18:59 06:59 18:59 Intake Total 900 400 Balance 900 400 Intake: Intake, IV Titration 900 Amount Sodium Chloride 0.9% 1, 900 000 ml @ 75 mls/hr IV . [id number] STA Rx#:[id number] Oral 400 Other: Voiding Method Toilet Toilet Bedside Commode Bedside Commode # Voids 1 3 - Exam In general patient is alert and oriented x 3 in no distress Head exam was generally normal. There was no scleral icterus or corneal arcus. Mucous membranes were moist. HEENT head normocephalic and atraumatic Neck is supple no JVD no goiter no lymphadenopathy no carotid bruit Chest examination is clear to auscultation no crackles , scattered extremity wheezes bilaterally Cardiac exam reveals regular heart sounds S1 and S2 no gallops no murmurs Abdomen is soft nontender no organomegaly with normal bowel sounds Extremity exam reveals no edema no cyanosis or clubbing Neurological examination reveals no gross focal deficits Examination of the skin revealed no evidence of significant rashes, suspicious appearing nevi or other concerning lesions. - Labs CBC & Chem 7: 03/24/23 06:35 03/24/23 06:35 Labs: Abnormal Lab Results - Last 24 Hours (Table) 03/23/23 03/23/23 03/24/23 Range/Units 17:14 20:23 06:35 WBC 11.94 H (4.50-10.00) X 10*3/uL RBC 3.54 L (4.10-5.20) X 10*6/uL Hgb 11.5 L (12.0-15.0) d/dL Hct 34.3 L (37.2-46.3) % MCH 32.5 H (27.0-32.0) pg Neutrophils # 10.56 H (1.80-7.70) X 10*3/uL Lymphocytes # 0.56 L (0.90-5.00) X 10*3/uL Eosinophils # 0 L (0.04-0.35) X 10*3/uL Anion Gap (4.00-12.00) mmol/L BUN (9.0-27.0) mg/dL Est GFR (CKD-EPI) (>=60) BUN/Creatinine Ratio (12.00-20.00) Ratio Glucose (70-110) mg/dL POC Glucose (mg/dL) 196 H 180 H (70-110) mg/dL Calcium (8.7-10.3) mg/dL Total Bilirubin (0.3-1.2) mg/dL Total Protein (6.2-8.2) d/dL Albumin (3.8-4.9) d/dL Albumin/Globulin Ratio (1.60-3.17) Ratio 03/24/23 03/24/23 Range/Units 06:35 07:19 WBC (4.50-10.00) X 10*3/uL RBC (4.10-5.20) X 10*6/uL Hgb (12.0-15.0) d/dL Hct (37.2-46.3) % MCH (27.0-32.0) pg Neutrophils # (1.80-7.70) X 10*3/uL Lymphocytes # (0.90-5.00) X 10*3/uL Eosinophils # (0.04-0.35) X 10*3/uL Anion Gap 16.40 H (4.00-12.00) mmol/L BUN 39.8 H (9.0-27.0) mg/dL Est GFR (CKD-EPI) 58 L (>=60) BUN/Creatinine Ratio 39.80 H (12.00-20.00) Ratio Glucose 135 H (70-110) mg/dL POC Glucose (mg/dL) 139 H (70-110) mg/dL Calcium 8.6 L (8.7-10.3) mg/dL Total Bilirubin 0.2 L (0.3-1.2) mg/dL Total Protein 5.9 L (6.2-8.2) d/dL Albumin 3.6 L (3.8-4.9) d/dL Albumin/Globulin Ratio 1.57 L (1.60-3.17) Ratio Assessment and Plan Plan: Acute exacerbation of COPD secondary to influenza A infection, clinically improved Acute influenza A tracheobronchitis, no evidence of any pneumonia Shortness of breath secondary to above Remote history of DVT and the patient is currently on no anticoagulants Osteoarthritis History of smoking Plan Discharge the patient home today Patient released home on a prednisone burst taper Resume all medications We'll continue to follow on outpatient if needed
== END 2023-03-24 15:08 | disposition home or self-care (01) | DRG 192 ==
LOC: EC 07:50 → 5NMEDONC 08:10
PROVIDERS: ADMIT Internal Medicine; ATTEND Internal Medicine
DX: J44.1 Chronic obstructive pulmonary disease with (acute) exacerbation (principal); J10.1 Influenza due to other identified influenza virus with other respiratory manifestations; J20.9 Acute bronchitis, unspecified; J44.0 Chronic obstructive pulmonary disease with (acute) lower respiratory infection; Z96.641 Presence of right artificial hip joint; I10 Essential (primary) hypertension; M19.90 Unspecified osteoarthritis, unspecified site; Z86.718 Personal history of other venous thrombosis and embolism; Z79.82 Long term (current) use of aspirin; Z88.0 Allergy status to penicillin; Z88.6 Allergy status to analgesic agent
CPT/HCPCS: 71046; 80053; 83605; 83735; 85025; 85610; 85730; 93005; 94760; 96361; 96365; 96366; 96375; 99285

== ENCOUNTER → 2023-06-01 | Outpatient (CLI) | payer MEDICARE, BC ==
--- NOTE | 2023-06-01 10:55 | CT ---
EXAMINATION TYPE: CT hip RT wo con CT DLP: 464 mGycm, Automated exposure control for dose reduction was used. DATE OF EXAM: 06/01/2023 10:48 AM COMPARISON: Pelvic radiograph 04/30/2019, right hip radiograph 12/26/2018 CLINICAL INDICATION:Female, 77 years old with history of Z96.641; PHH, RIGHT HIP PAIN TECHNIQUE: Axial images were obtained of the right hip without the use of IV contrast. Additional co lydia and sagittal reformatted images and soft tissue and bone window were obtained for review. FINDINGS: Postsurgical fixation changes with arthroplasty involving the right hip. Cerclage wires inv olve the right proximal femur. Hardware creates streak artifact which limits evaluation. No periprost hetic lucency to suggest loosening. No acute fracture. No dislocation. No significant soft tissue swe lling or joint effusion is identified. No focal muscular atrophy or edema is identified. Linear benig n dystrophic calcification within the right anterior thigh fascia. Additional benign calcifications w ithin the right gluteal soft tissues. No significant abnormality within the visualized pelvis. Vascul ar calcifications noted. IMPRESSION: 1. Postsurgical fixation/arthroplasty changes of the right hip. Hardware appears intact. No peripros thesis lucency suggesting loosening. 2. No acute fracture or dislocation.
== END | disposition home or self-care (01) ==
LOC: RADCTMAIN 10:22
PROVIDERS: ATTEND Orthopaedic Surgery
DX: M25.551 Pain in right hip (principal); Z96.641 Presence of right artificial hip joint

== ENCOUNTER → 2023-06-01 | Outpatient (CLI) | payer MEDICARE, BC | END | disposition home or self-care (01) | LOC: LABWHC1 11:01 | PROVIDERS: ATTEND Orthopaedic Surgery | DX: Z96.641 Presence of right artificial hip joint (principal) | CPT/HCPCS: 36415; 85652; 86140 ==